=== PATIENT | male | born 1955 | race Asian ===

== ENCOUNTER 2017-05-07 20:28 | Inpatient (IN) | payer SELFPAY ==
[~2017-05-07] VITALS: Ht 175.3 cm; Wt 65.8 kg
[2017-05-07] MEDS ORDERED: Morphine Sulfate 4mg/ml Inj IVP ONE (20:30)
[2017-05-07] MEDS ORDERED: Famotidine 20 MG/ 2ML VIAL IVP ONE (20:45)
[2017-05-07 21:03] LABS: MEAN CORPUSCULAR HEMOGLOBIN 34.2 PG (27.0-31.0); MEAN CORPUSCULAR VOLUME 101 FL (80-99); MEAN PLATELET VOLUME 6.5 FL (6.5-10.1); PLATELET COUNT 204 K/UL (150-450); RED BLOOD COUNT 4.23 M/UL (4.70-6.10); RED CELL DISTRIBUTION WIDTH 11.6 % (11.6-14.8)
[2017-05-07 21:06] LABS: BASOPHILS % (AUTO) 0.8 % (0.0-2.0); EOSINOPHILS % (AUTO) 0.1 % (0.0-3.0); MONOCYTES % (AUTO) 3.4 % (1.0-10.0); NEUTROPHILS % (AUTO) 85.8 % (45.0-75.0)
[2017-05-07 21:12] LABS: TROPONIN I < 0.30 ng/mL (<=0.30)
[2017-05-07 21:13] LABS: ALANINE AMINOTRANSFERASE 21 U/L (3-41); ANION GAP 14 (5-15); ASPARTATE AMINO TRANSFERASE 22 U/L (5-40); CALCIUM 9.2 mg/dL (8.6-10.2); CARBON DIOXIDE 25 mEQ/L (20-30); CHLORIDE 102 mEQ/L (98-107); CREATININE 0.9 mg/dL (0.7-1.2); GLOMERULAR FILTRATION RATE > 60 mL/min (>60); HEMOLYSIS 7; POTASSIUM 3.5 mEQ/L (3.4-4.9); SODIUM 141 mEQ/L (135-145); TOTAL PROTEIN 6.7 g/dL (6.6-8.7)
[2017-05-07 21:16] LABS: INR 0.9 (0.9-1.1); PROTHROMBIN TIME 9.7 SEC (9.30-11.50)
[2017-05-07 21:51] LABS: LIPASE 2329 U/L (< 60)
--- NOTE | 2017-05-07 22:20 | Emergency Room Report ---
History of Present Illness General Chief Complaint: Abdominal Pain Source: Patient Present Illness HPI Patient is a 61-year-old male who presented after increased epigastric pain. Patient reported having alcohol yesterday. He had been having increased abdominal pain since the few hours prior to arrival.the patient vomited one time in emergency department. The pain was worsened by food. The patient reports having prior gastric surgery with likely partial gastrectomy. He denied any hematemesis or bloody stools Allergies: Coded Allergies: No Known Allergies (Unverified , 05/07/17) Patient History Past Medical History: see triage record Reviewed Nursing Documentation: PMH: Agreed, PSxH: Agreed Review of Systems All Other Systems: negative except mentioned in HPI Physical Exam Vital Signs Date Time Temp Pulse Resp B/P Pulse Ox O2 Delivery O2 Flow Rate FiO2 05/07/17 20:22 97.5 74 18 146/85 99 Room Air General Appearance: alert, GCS 15, moderate distress Neck: full range of motion, supple Respiratory: chest non-tender, lungs clear, normal breath sounds Cardiovascular #1: normal peripheral pulses Gastrointestinal: soft, tenderness - epigastric Musculoskeletal: normal inspection, back normal, digits/nails normal Neurologic: normal inspection, alert, oriented x3, responsive, 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 Differential diagnoses included ischemic bowel, appendicitis, perforated viscus, abdominal aortic aneurysm, inferior myocardial infarction, viral gastroenteritis Because of complexity of patient's case laboratory testing and imaging studies were ordered. The patient was given IV pain medication as well as antibiotics. He started on IV H2 makayla. The patient was noted to have elevated lipase on laboratory testing. Given the patient's advanced age and severe pain he is being admitted for IV hydration and as well as IV pain control.A CT abdomen pelvis read by radiology showed partial gastrectomy likely Siria-en-Y. 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 The head pancreas was edematous likely secondary to duodenal finding. The patient was discussed with Dr. Ocasio for surgical consult who recommended no ng tube. Dr. Hickman was contacted for inpatient management. Labs Test 05/07/17 20:44 White Blood Count 15.0 K/UL (4.8-10.8) Red Blood Count 4.23 M/UL (4.70-6.10) Hemoglobin 14.5 G/DL (14.2-18.0) Hematocrit 42.6 % (42.0-52.0) Mean Corpuscular Volume 101 FL (80-99) Mean Corpuscular Hemoglobin 34.2 PG (27.0-31.0) Mean Corpuscular Hemoglobin Concent 34.0 G/DL (32.0-36.0) Red Cell Distribution Width 11.6 % (11.6-14.8) Platelet Count 204 K/UL (150-450) Mean Platelet Volume 6.5 FL (6.5-10.1) Neutrophils (%) (Auto) 85.8 % (45.0-75.0) Lymphocytes (%) (Auto) 10.0 % (20.0-45.0) Monocytes (%) (Auto) 3.4 % (1.0-10.0) Eosinophils (%) (Auto) 0.1 % (0.0-3.0) Basophils (%) (Auto) 0.8 % (0.0-2.0) Prothrombin Time 9.7 SEC (9.30-11.50) Prothromb Time International Ratio 0.9 (0.9-1.1) Activated Partial Thromboplast Time 24 SEC (23-33) Sodium Level 141 mEQ/L (135-145) Potassium Level 3.5 mEQ/L (3.4-4.9) Chloride Level 102 mEQ/L (98-107) Carbon Dioxide Level 25 mEQ/L (20-30) Anion Gap 14 (5-15) Blood Urea Nitrogen 17 mg/dL (7-23) Creatinine 0.9 mg/dL (0.7-1.2) Estimat Glomerular Filtration Rate > 60 mL/min (>60) Glucose Level 147 mg/dL (74-106) Calcium Level 9.2 mg/dL (8.6-10.2) Total Bilirubin 0.6 mg/dL (0.0-1.2) Aspartate Amino Transf (AST/SGOT) 22 U/L (5-40) Alanine Aminotransferase (ALT/SGPT) 21 U/L (3-41) Alkaline Phosphatase 73 U/L (40-129) Troponin I < 0.30 ng/mL (<=0.30) Total Protein 6.7 g/dL (6.6-8.7) Albumin 4.5 g/dL (3.5-5.2) Globulin 2.2 g/dL Albumin/Globulin Ratio 2.0 (1.0-2.7) Lipase 2329 U/L (< 60) EKG Diagnostic Results Rate: normal Rhythm: NSR ST Segments: no acute changes Rhythm Strip Diag. Results EP Interpretation: yes Rhythm: NSR, no PVC's Last Vital Signs Date Time Temp Pulse Resp B/P Pulse Ox O2 Delivery O2 Flow Rate FiO2 05/07/17 20:22 97.5 74 18 146/85 99 Room Air Status: unchanged Disposition: ADMITTED INPATIENT Condition: Serious Referrals: NOT CHOSEN MAHNAZ/,REFERRING (PCP) Rico Dillard May 07, 2017 22:20
[2017-05-07 22:35] LABS: APPEARANCE,URINE CLEAR; KETONES,URINE NEGATIVE (NEGATIVE); LEUKOCYTE ESTERASE ,URINE NEGATIVE (NEGATIVE); NITRITE,URINE NEGATIVE (NEGATIVE); PH,URINE 7 (4.5-8.0); PROTEIN,URINE NEGATIVE (NEGATIVE); UROBILINOGEN,URINE NORMAL MG/DL (0.0-1.0)
[2017-05-07 23:03] VITALS: BP 121/70
[2017-05-07 23:45] VITALS: BP 138/90
[2017-05-08] MEDS ORDERED: Morphine Sulfate 4mg/ml Inj IVP PRN (00:30)
[2017-05-08] MEDS: 1/2NS w/KCl 20mEq 1000ml 1,000 ML IV SCH ×2 (01:03→15:51)
[2017-05-08 04:00] VITALS: BP 117/75
[2017-05-08 07:52] LABS: ALANINE AMINOTRANSFERASE 16 U/L (3-41); ANION GAP 9 (5-15); ASPARTATE AMINO TRANSFERASE 11 U/L (5-40); BASOPHILS % (AUTO) 0.6 % (0.0-2.0); CALCIUM 8.4 mg/dL (8.6-10.2); CARBON DIOXIDE 27 mEQ/L (20-30); CHLORIDE 106 mEQ/L (98-107); CREATININE 0.8 mg/dL (0.7-1.2); EOSINOPHILS % (AUTO) 0.2 % (0.0-3.0); GLOMERULAR FILTRATION RATE > 60 mL/min (>60); HEMOLYSIS 8; LYMPHOCYTES % (AUTO) 19.8 % (20.0-45.0); MEAN CORPUSCULAR HEMOGLOBIN 34.3 PG (27.0-31.0); MEAN CORPUSCULAR HGB CONC 33.5 G/DL (32.0-36.0); MEAN CORPUSCULAR VOLUME 102 FL (80-99); MEAN PLATELET VOLUME 6.8 FL (6.5-10.1); MONOCYTES % (AUTO) 6.4 % (1.0-10.0); PLATELET COUNT 179 K/UL (150-450); RED BLOOD COUNT 3.94 M/UL (4.70-6.10); RED CELL DISTRIBUTION WIDTH 11.7 % (11.6-14.8); SODIUM 142 mEQ/L (135-145); TOTAL PROTEIN 5.7 g/dL (6.6-8.7); WHITE BLOOD COUNT 7.7 K/UL (4.8-10.8)
[2017-05-08 08:00] VITALS: BP 121/74
[2017-05-08 08:52] LABS: LIPASE 748 U/L (< 60)
--- NOTE | 2017-05-08 09:51 | Diagnostic Imaging Report ---
Indication: Abdominal pain Technique: Continuous helical transaxial imaging of the abdomen and pelvis was obtained from the lung bases to the pubic symphysis during intravenous contrast administration. Coronal 2-D reformats were also obtained. Study obtained in a Siemens sensation [address] Total Dose length Product (DLP): [address] Dose Index Volume (CTDIvol): 16 mGy Comparison: None Findings: There is posterior basilar atelectasis noted. The patient has had prior partial gastrectomy. No oral contrast was given which is unfortunate. There is no free air. The stomach is not dilated. There is a dilated loop of small bowel crossing midline suspicious for obstruction. This could be the afferent limb of billroth 2 or britany-en-Y configuration. I'm not certain of this but given the location this is possibility. There does appear to be a transition in the left side of the abdomen between the left side of this dilated loop of bowel and normal caliber bowel (for example image 14-20, series 5) this apparent transition is fairly anterior in location may be an adhesion or internal hernia. In addition, the head of the pancreas is abnormal with edema and enlargement. Suspect focal pancreatitis. Please correlate clinically The gallbladder appears to be present although there are surgical clips in the area of the gallbladder fossa. Both kidneys enhance normally. There is no hydronephrosis. The spleen is unremarkable. Arterial vascular calcifications are present. There are diverticula in the colon without definite diverticulitis. Urinary bladder is mildly distended. The appendix is normal. Impression: Suspicion of bowel obstruction in the upper abdomen involving small bowel that crosses transversely just anterior to the aorta. This could represent afferent loop obstruction, as the patient has had partial gastrectomy with what may be a billroth 2 or more likely britany-en-y reconstruction. The other explanation for the dilated small bowel is dilatation on the basis of a focal ileus given that the adjacent pancreatic head shows evidence of acute pancreatitis. Please correlate clinically, but obstruction is more likely based on imaging. Strongly recommend repeating the exam with oral contrast, which unfortunately was not given for the current study. Hiatal hernia Arterial vascular disease Dilated urinary bladder Diverticulosis of the colon Normal appendix [facility] has communicated the preliminary results to the Emergency Department. Their findings are largely concordant with this report. The CT scanner at [facility] is accredited by the [employer] and the scans are performed using dose optimization techniques as appropriate to a performed exam including Automatic Exposure control.
--- NOTE | 2017-05-08 11:35 | General Progress Note ---
Progress Note Progress Note pt seen and examined, consult dictated. CT reviewed with radiologist. Imp sp partial gastrectomy. CT shows a single limb of disteded small bowell that may represent the afferent limb, adjacent to the pancreas. head of pancreas is inflamed and pt has very high lipase. rec GI consult \fu KUB message left for LEX Reyes May 08, 2017 11:35
[2017-05-08 12:00] VITALS: BP 115/68
--- NOTE | 2017-05-08 13:03 | Consultation ---
History of Present Illness General Chief Complaint: Abdominal Pain Present Illness HPI 61-year-old male who presented after increased epigastric pain. Patient reported having alcohol yesterday. Allergies: Coded Allergies: No Known Allergies (Unverified , 05/07/17) Patient History Healthcare decision maker Resuscitation status Advanced Directive on File Physical Exam Last 24 Hour Vital Signs Date Time Temp Pulse Resp B/P Pulse Ox O2 Delivery O2 Flow Rate FiO2 05/08/17 12:00 96.3 67 17 115/68 100 Room Air 05/08/17 08:00 97.2 61 17 121/74 97 Room Air 05/08/17 04:00 98.1 68 18 117/75 96 Room Air 05/07/17 23:45 97.0 82 18 138/90 95 Room Air 05/07/17 23:35 97.5 77 19 121/70 99 Room Air 05/07/17 23:03 97.5 77 19 121/70 99 Room Air 05/07/17 20:22 97.5 74 18 146/85 99 Room Air Intake and Output 05/07/17 05/08/17 19:00 07:00 Intake Total 1450 ml Output Total 525 ml Balance 925 ml Intake IV Total 1450 ml Output Urine Total 525 ml # Voids 1 Laboratory Tests Test 05/07/17 20:44 05/07/17 22:04 05/08/17 05:40 05/08/17 10:20 White Blood Count 15.0 K/UL (4.8-10.8) H 7.7 K/UL (4.8-10.8) Red Blood Count 4.23 M/UL (4.70-6.10) L 3.94 M/UL (4.70-6.10) L Hemoglobin 14.5 G/DL (14.2-18.0) 13.5 G/DL (14.2-18.0) L Hematocrit 42.6 % (42.0-52.0) 40.3 % (42.0-52.0) L Mean Corpuscular Volume 101 FL (80-99) H 102 FL (80-99) H Mean Corpuscular Hemoglobin 34.2 PG (27.0-31.0) H 34.3 PG (27.0-31.0) H Mean Corpuscular Hemoglobin Concent 34.0 G/DL (32.0-36.0) 33.5 G/DL (32.0-36.0) Red Cell Distribution Width 11.6 % (11.6-14.8) 11.7 % (11.6-14.8) Platelet Count 204 K/UL (150-450) 179 K/UL (150-450) Mean Platelet Volume 6.5 FL (6.5-10.1) 6.8 FL (6.5-10.1) Neutrophils (%) (Auto) 85.8 % (45.0-75.0) H 73.0 % (45.0-75.0) Lymphocytes (%) (Auto) 10.0 % (20.0-45.0) L 19.8 % (20.0-45.0) L Monocytes (%) (Auto) 3.4 % (1.0-10.0) 6.4 % (1.0-10.0) Eosinophils (%) (Auto) 0.1 % (0.0-3.0) 0.2 % (0.0-3.0) Basophils (%) (Auto) 0.8 % (0.0-2.0) 0.6 % (0.0-2.0) Prothrombin Time 9.7 SEC (9.30-11.50) Prothromb Time International Ratio 0.9 (0.9-1.1) Activated Partial Thromboplast Time 24 SEC (23-33) Sodium Level 141 mEQ/L (135-145) 142 mEQ/L (135-145) Potassium Level 3.5 mEQ/L (3.4-4.9) 4.0 mEQ/L (3.4-4.9) Chloride Level 102 mEQ/L (98-107) 106 mEQ/L (98-107) Carbon Dioxide Level 25 mEQ/L (20-30) 27 mEQ/L (20-30) Anion Gap 14 (5-15) 9 (5-15) Blood Urea Nitrogen 17 mg/dL (7-23) 15 mg/dL (7-23) Creatinine 0.9 mg/dL (0.7-1.2) 0.8 mg/dL (0.7-1.2) Estimat Glomerular Filtration Rate > 60 mL/min (>60) > 60 mL/min (>60) Glucose Level 147 mg/dL (74-106) H 107 mg/dL (74-106) H Calcium Level 9.2 mg/dL (8.6-10.2) 8.4 mg/dL (8.6-10.2) L Total Bilirubin 0.6 mg/dL (0.0-1.2) 0.8 mg/dL (0.0-1.2) Aspartate Amino Transf (AST/SGOT) 22 U/L (5-40) 11 U/L (5-40) Alanine Aminotransferase (ALT/SGPT) 21 U/L (3-41) 16 U/L (3-41) Alkaline Phosphatase 73 U/L (40-129) 63 U/L (40-129) Troponin I < 0.30 ng/mL (<=0.30) Total Protein 6.7 g/dL (6.6-8.7) 5.7 g/dL (6.6-8.7) L Albumin 4.5 g/dL (3.5-5.2) 3.8 g/dL (3.5-5.2) Globulin 2.2 g/dL 1.9 g/dL Albumin/Globulin Ratio 2.0 (1.0-2.7) 2.0 (1.0-2.7) Lipase 2329 U/L (< 60) H 748 U/L (< 60) H Urine Color Pale yellow Urine Appearance Clear Urine pH 7 (4.5-8.0) Urine Specific [place] 1.010 (1.005-1.035) Urine Protein Negative (NEGATIVE) Urine Glucose (UA) Negative (NEGATIVE) Urine Ketones Negative (NEGATIVE) Urine Occult Blood Negative (NEGATIVE) Urine Nitrite Negative (NEGATIVE) Urine Bilirubin Negative (NEGATIVE) Urine Urobilinogen Normal MG/DL (0.0-1.0) Urine Leukocyte Esterase Negative (NEGATIVE) Urine Opiates Screen Positive (NEGATIVE) H Urine Barbiturates Screen Negative (NEGATIVE) Phencyclidine (PCP) Screen Negative (NEGATIVE) Urine Amphetamines Screen Negative (NEGATIVE) Urine Benzodiazepines Screen Negative (NEGATIVE) Urine Cocaine Screen Negative (NEGATIVE) Urine Marijuana (THC) Screen Negative (NEGATIVE) Height (Feet): 5 Height (Inches): 9.00 Weight (Pounds): 145 Medications Current Medications Medications (Trade) Dose Ordered Sig/Martha Route PRN Reason Start Time Stop Time Status Last Admin Dose Admin Morphine Sulfate (Morphine Sulfate) 4 mg Q4H PRN IVP For Pain 05/08/17 00:30 05/15/17 00:29 Ondansetron HCl (Zofran) 4 mg Q6H PRN IVP Nausea & Vomiting 05/08/17 00:30 06/07/17 00:29 Sodium (0.45%NS w/KCl 20mEq 1000ml) 1,000 ml @ 75 mls/hr [id number] IV 05/08/17 00:30 06/07/17 00:29 05/08/17 01:03 Brian Cam M.D. May 08, 2017 13:03
--- NOTE | 2017-05-08 13:46 | Consultation ---
DATE OF CONSULTATION: 05/08/2017 SURGICAL CONSULTATION CONSULTING PHYSICIAN: Freddie Porter M.D. REASON FOR CONSULT: Abdominal pain. PRESENT HISTORY: This 61-year-old, gentleman admitted to [facility] after being seen in the emergency department yesterday with increasing abdominal pain. The patient had one episode of vomiting. No hematemesis, had some had some alcohol yesterday with the patient significantly is status post a gastric resection done some 15 years ago at [facility]. He is uncertain the extent of the surgery or what type was done, but this had been done laparoscopically. The patient had a CT scan of the abdomen performed, which was reviewed with the radiologist, unfortunately no oral contrast had been given. There is a single loop of distended small bowel hugging at the border of the inferior to the pancreas that may represent an apparent limb that is markedly dilated. The pancreas is noted to be edematous and enlarged suspicious for focal pancreatitis. Gallbladder appears to be present although there are surgical clips in the area. The patient denies any other major medical problems. MEDICATIONS: Include morphine sulfate, Zofran and Pepcid. REVIEW OF SYSTEMS: Noncontributory. PHYSICAL EXAMINATION: VITAL SIGNS: Vital signs show a temperature 97.2 degrees, pulse is 61, respirations 17, blood pressure is 121/74, and 97% O2 saturation on room air. HEENT: Normocephalic. The sclerae not icteric. The pupils are round and reactive to light. His throat is clear. No exudates or pharyngitis. NECK: Supple. No JVD or thyromegaly noted. LUNGS: Lungs are clear bilaterally. HEART: Normal sinus rhythm. ABDOMEN: Soft. There is a well-healed transverse scar in the left upper quadrant. Another scars consistent with trocar site. There is no distention. No guarding. No rebound. GENITALIA: Normal male. EXTREMITIES: No clubbing, cyanosis, or edema. LABORATORY AND DIAGNOSTIC DATA: Labs show a white blood count of 7.7, hemoglobin of 13.5, hematocrit 40.3, and platelet count is 179,000. Chemistry sodium 142, potassium 4.0, chloride 106, bicarbonate 27, BUN is 15, creatinine 0.8, glucose is 107 and calcium is 8.4. Total bilirubin is 0.8, AST is 11, ALT is 16 and alkaline phosphatase is 63. Lipase is markedly elevated with initial of 2329 and now repeat is 749. has been done. IMPRESSION: 1. Nausea, vomiting and abdominal pain. 2. Status post gastric surgery, it is uncertain whether the patient had a Siria-en-Y repair versus loop of distended small bowel may represent partial obstruction of the apparent limb this may be caused by the pancreatitis involving the head of the pancreas. RECOMMENDATIONS: 1. Keep NPO. 2. Follow up KUB. 3. Gastrointestinal evaluation is possible though may be very difficult to perform an endoscopy to evaluate the apparent limb. Thank you, Dr. Richard, for inviting us to participate in the management. Freddie Porter M.D. DR: Simran JOB#: [id number] CC:
--- NOTE | 2017-05-08 13:50 | Consultation ---
Consult Note Consult Note asked to eval for renal consult Patient is a 61-year-old male who presented after increased epigastric pain. Patient reported having alcohol yesterday. He had been having increased abdominal pain since the few hours prior to arrival.the patient vomited one time in emergency department. The pain was worsened by food. The patient reports having prior gastric surgery with likely partial gastrectomy. He denied any hematemesis or bloody stools Interviewed and examined- data reviewed Assessment/Plan No renal issues Normal renal parameters and negative UA - Nausea, vomiting and abdominal pain. with high Lipase - Status post gastric surgery, it is uncertain whether the patient had a Siria-en-Y repair versus loop of distended small bowel may represent partial obstruction of the apparent limb this may be caused by the pancreatitis involving the head of the pancreas. Per GI and Surg DEVIN CORONADO May 08, 2017 13:50
--- NOTE | 2017-05-08 14:12 | Infectious Diseases Prog Note ---
Assessment/Plan Problems: (1) Left leg cellulitis Assessment & Plan: will start cefazoline , and send blood culture (2) Leukocytosis Assessment & Plan: suspect due to cellulitis, rule out sepsis, will send blood culture , and start cefazoline (3) Pancreatitis, alcoholic, acute Assessment & Plan: continue hydration and pain management , consult GI (4) Abdominal pain Assessment & Plan: due to the above, continue pain management (5) Ileus Assessment & Plan: due to pancreatitis , keep npo, continue hydration Subjective Allergies: Coded Allergies: No Known Allergies (Unverified , 05/07/17) Objective Vital Signs Last 24 Hour Vital Signs Date Time Temp Pulse Resp B/P Pulse Ox O2 Delivery O2 Flow Rate FiO2 05/08/17 12:00 96.3 67 17 115/68 100 Room Air 05/08/17 08:00 97.2 61 17 121/74 97 Room Air 05/08/17 04:00 98.1 68 18 117/75 96 Room Air 05/07/17 23:45 97.0 82 18 138/90 95 Room Air 05/07/17 23:35 97.5 77 19 121/70 99 Room Air 05/07/17 23:03 97.5 77 19 121/70 99 Room Air 05/07/17 20:22 97.5 74 18 146/85 99 Room Air Height (Feet): 5 Height (Inches): 9.00 Weight (Pounds): 145 Laboratory Tests Test 05/07/17 20:44 05/07/17 22:04 05/08/17 05:40 05/08/17 10:20 White Blood Count 15.0 K/UL (4.8-10.8) H 7.7 K/UL (4.8-10.8) Red Blood Count 4.23 M/UL (4.70-6.10) L 3.94 M/UL (4.70-6.10) L Hemoglobin 14.5 G/DL (14.2-18.0) 13.5 G/DL (14.2-18.0) L Hematocrit 42.6 % (42.0-52.0) 40.3 % (42.0-52.0) L Mean Corpuscular Volume 101 FL (80-99) H 102 FL (80-99) H Mean Corpuscular Hemoglobin 34.2 PG (27.0-31.0) H 34.3 PG (27.0-31.0) H Mean Corpuscular Hemoglobin Concent 34.0 G/DL (32.0-36.0) 33.5 G/DL (32.0-36.0) Red Cell Distribution Width 11.6 % (11.6-14.8) 11.7 % (11.6-14.8) Platelet Count 204 K/UL (150-450) 179 K/UL (150-450) Mean Platelet Volume 6.5 FL (6.5-10.1) 6.8 FL (6.5-10.1) Neutrophils (%) (Auto) 85.8 % (45.0-75.0) H 73.0 % (45.0-75.0) Lymphocytes (%) (Auto) 10.0 % (20.0-45.0) L 19.8 % (20.0-45.0) L Monocytes (%) (Auto) 3.4 % (1.0-10.0) 6.4 % (1.0-10.0) Eosinophils (%) (Auto) 0.1 % (0.0-3.0) 0.2 % (0.0-3.0) Basophils (%) (Auto) 0.8 % (0.0-2.0) 0.6 % (0.0-2.0) Prothrombin Time 9.7 SEC (9.30-11.50) Prothromb Time International Ratio 0.9 (0.9-1.1) Activated Partial Thromboplast Time 24 SEC (23-33) Sodium Level 141 mEQ/L (135-145) 142 mEQ/L (135-145) Potassium Level 3.5 mEQ/L (3.4-4.9) 4.0 mEQ/L (3.4-4.9) Chloride Level 102 mEQ/L (98-107) 106 mEQ/L (98-107) Carbon Dioxide Level 25 mEQ/L (20-30) 27 mEQ/L (20-30) Anion Gap 14 (5-15) 9 (5-15) Blood Urea Nitrogen 17 mg/dL (7-23) 15 mg/dL (7-23) Creatinine 0.9 mg/dL (0.7-1.2) 0.8 mg/dL (0.7-1.2) Estimat Glomerular Filtration Rate > 60 mL/min (>60) > 60 mL/min (>60) Glucose Level 147 mg/dL (74-106) H 107 mg/dL (74-106) H Calcium Level 9.2 mg/dL (8.6-10.2) 8.4 mg/dL (8.6-10.2) L Total Bilirubin 0.6 mg/dL (0.0-1.2) 0.8 mg/dL (0.0-1.2) Aspartate Amino Transf (AST/SGOT) 22 U/L (5-40) 11 U/L (5-40) Alanine Aminotransferase (ALT/SGPT) 21 U/L (3-41) 16 U/L (3-41) Alkaline Phosphatase 73 U/L (40-129) 63 U/L (40-129) Troponin I < 0.30 ng/mL (<=0.30) Total Protein 6.7 g/dL (6.6-8.7) 5.7 g/dL (6.6-8.7) L Albumin 4.5 g/dL (3.5-5.2) 3.8 g/dL (3.5-5.2) Globulin 2.2 g/dL 1.9 g/dL Albumin/Globulin Ratio 2.0 (1.0-2.7) 2.0 (1.0-2.7) Lipase 2329 U/L (< 60) H 748 U/L (< 60) H Urine Color Pale yellow Urine Appearance Clear Urine pH 7 (4.5-8.0) Urine Specific [place] 1.010 (1.005-1.035) Urine Protein Negative (NEGATIVE) Urine Glucose (UA) Negative (NEGATIVE) Urine Ketones Negative (NEGATIVE) Urine Occult Blood Negative (NEGATIVE) Urine Nitrite Negative (NEGATIVE) Urine Bilirubin Negative (NEGATIVE) Urine Urobilinogen Normal MG/DL (0.0-1.0) Urine Leukocyte Esterase Negative (NEGATIVE) Urine Opiates Screen Positive (NEGATIVE) H Urine Barbiturates Screen Negative (NEGATIVE) Phencyclidine (PCP) Screen Negative (NEGATIVE) Urine Amphetamines Screen Negative (NEGATIVE) Urine Benzodiazepines Screen Negative (NEGATIVE) Urine Cocaine Screen Negative (NEGATIVE) Urine Marijuana (THC) Screen Negative (NEGATIVE) Current Medications Medications (Trade) Dose Ordered Sig/Martha Route PRN Reason Start Time Stop Time Status Last Admin Dose Admin Morphine Sulfate (Morphine Sulfate) 4 mg Q4H PRN IVP For Pain 05/08/17 00:30 7 00:29 Ondansetron HCl (Zofran) 4 mg Q6H PRN IVP Nausea & Vomiting 05/08/17 00:30 8 00:29 Sodium (0.45%NS w/KCl 20mEq 1000ml) 1,000 ml @ 75 mls/hr [id number] IV 05/08/17 00:30 8 00:29 05/08/17 01:03 Reid Rojas M.D. May 08, 2017 14:12
--- NOTE | 2017-05-08 14:45 | Consultation ---
DATE OF CONSULTATION: 05/08/2017 REQUESTING PHYSICIAN: Marie Richard M.D. REASON FOR CONSULTATION: Abdominal pain. HISTORY OF PRESENT ILLNESS: This is a 61-year-old [place] male, who presented to emergency room, complaining of one-day history of abdominal pain when apparently the pain was lower abdomen and periumbilical and crampy, this pain was associated with nausea or vomiting. He claimed that the pain has resolved, has been improved considerably now. At the present time, he only complains of discomfort. He had a normal bowel movement yesterday. He has a history of partial gastrectomy about 20 years ago and apparently, he has a history of ETOH abuse. The patient is not very interested in giving any information. Difficult to get any answer. PAST MEDICAL HISTORY: He denies allergies, asthma, diabetes, hypertension, cardiac and renal diseases. PAST SURGICAL HISTORY: Laparostomy, gastrectomy, apparently for gastritis and apparently for peptic ulcer disease. MEDICATIONS: None. SOCIAL HISTORY: The patient is a 61-year-old [place] male, who is and father of six children. He is a cook. He smokes a pack of cigarettes a day and drinks every day. He claimed that he drinks beer and whisky. REVIEW OF SYSTEMS: Noncontributory. PHYSICAL EXAMINATION: GENERAL: The patient appeared to be a well-developed and well-nourished, 61-year-old [place] male, mildly ischemic. HEENT: Head is normocephalic and atraumatic. Eyes, pupils are equal, round, and reactive to light. Mouth is clear. NECK: There is no palpable thyromegaly or adenopathy. CHEST: Clear to auscultation and percussion. HEART: There is no gallop or murmur. S1 and S2 are within normal limits. ABDOMEN: Soft and flat. He claims only slight discomfort in the lower abdomen. He has a scar of the few laparoscopy trocar site incisions. Bowel sounds are hypoactive. There is no palpable organomegaly. GENITAL: Normal. EXTREMITIES: Within normal limits. LABORATORY DATA: CBC on admission has shown a WBC of 15,000 with left shift, but this morning it is 7700 with normal differential. Chemistry on admission has shown lipase of 2329, but this morning, it has been 748. CAT scan of the abdomen has been reported as the head of the pancreas to be dilated and inflamed besides there is a dilated loop of small bowel, which seems to be the proximal part of the bowel. The radiologist was not sure if this efferent loop of the bowel or is due to the obstruction. ASSESSMENT: Abdominal pain, rule out small bowel obstruction. RECOMMENDATION: At this time, the patient is to be NPO, on intravenous fluids. I took the liberty of ordering a Gastrografin small bowel follow-through to make sure about the small bowel. Thank you, Dr. Richard, for asking me to participate in the management of this patient. Janusz Albright M.D. DR: KIARA JOB#: [id number] CC: ADRIANNA
--- NOTE | 2017-05-08 14:55 | GI Initial Consult Note ---
History of Present Illness General Date patient seen: May 08, 2017 Time patient seen: 10:00 Reason for Hospitalization: Abdominal Pain Referring physician: VAISHALI MORENO Reason for Consultation: PANCREATITIS Present Illness HPI Patient is a 61-year-old male who presented after increased epigastric pain. Patient reported having alcohol yesterday. He had been having increased abdominal pain since the few hours prior to arrival.the patient vomited one time in emergency department. The pain was worsened by food. The patient reports having prior gastric surgery with likely partial gastrectomy. He denied any hematemesis or bloody stools GI Consult. HPI as noted above. GI consulted for ETOH pancreatitis. Pt seen on floor, awake A&Ox4 NAD with no active s/sx of N/V/D c/o of abdominal pain tender to touch. Presents with lipase over 2000 in ER now downtrending to 750. APCT shows possible SB obstruction vs focal ileus and pancreatitis, see full report below. Procedure: CT Abdomen Pelvis w/Contrast Indication: Abdominal pain Impression: Suspicion of bowel obstruction in the upper abdomen involving small bowel that crosses transversely just anterior to the aorta. This could represent afferent loop obstruction, as the patient has had partial gastrectomy with what may be a billroth 2 or more likely britany-en-y reconstruction. The other explanation for the dilated small bowel is dilatation on the basis of a focal ileus given that the adjacent pancreatic head shows evidence of acute pancreatitis. Please correlate clinically, but obstruction is more likely based on imaging. Strongly recommend repeating the exam with oral contrast, which unfortunately was not given for the current study. Hiatal hernia Arterial vascular disease Dilated urinary bladder Diverticulosis of the colon Normal appendix Med list reviewed/reconciled: Yes Allergies: Coded Allergies: No Known Allergies (Unverified , 05/07/17) Patient History History Provided By: Patient, Medical Record PMH Narrative Allergies: Coded Allergies: No Known Allergies (Unverified , 05/07/17) Patient History Past Medical History: see triage record Reviewed Nursing Documentation: PMH: Agreed, PSxH: Agreed Social History: Reports: alcohol use Review of Systems All Other Systems: negative except mentioned in HPI Physical Exam Vital Signs Date Time Temp Pulse Resp B/P Pulse Ox O2 Delivery O2 Flow Rate FiO2 05/07/17 20:22 97.5 74 18 146/85 99 Room Air Sp02 EP Interpretation: reviewed Labs Laboratory Tests Test 05/07/17 20:44 7/4/17 22:04 05/08/17 05:40 05/08/17 10:20 White Blood Count 15.0 K/UL (4.8-10.8) H 7.7 K/UL (4.8-10.8) Red Blood Count 4.23 M/UL (4.70-6.10) L 3.94 M/UL (4.70-6.10) L Hemoglobin 14.5 G/DL (14.2-18.0) 13.5 G/DL (14.2-18.0) L Hematocrit 42.6 % (42.0-52.0) 40.3 % (42.0-52.0) L Mean Corpuscular Volume 101 FL (80-99) H 102 FL (80-99) H Mean Corpuscular Hemoglobin 34.2 PG (27.0-31.0) H 34.3 PG (27.0-31.0) H Mean Corpuscular Hemoglobin Concent 34.0 G/DL (32.0-36.0) 33.5 G/DL (32.0-36.0) Red Cell Distribution Width 11.6 % (11.6-14.8) 11.7 % (11.6-14.8) Platelet Count 204 K/UL (150-450) 179 K/UL (150-450) Mean Platelet Volume 6.5 FL (6.5-10.1) 6.8 FL (6.5-10.1) Neutrophils (%) (Auto) 85.8 % (45.0-75.0) H 73.0 % (45.0-75.0) Lymphocytes (%) (Auto) 10.0 % (20.0-45.0) L 19.8 % (20.0-45.0) L Monocytes (%) (Auto) 3.4 % (1.0-10.0) 6.4 % (1.0-10.0) Eosinophils (%) (Auto) 0.1 % (0.0-3.0) 0.2 % (0.0-3.0) Basophils (%) (Auto) 0.8 % (0.0-2.0) 0.6 % (0.0-2.0) Prothrombin Time 9.7 SEC (9.30-11.50) Prothromb Time International Ratio 0.9 (0.9-1.1) Activated Partial Thromboplast Time 24 SEC (23-33) Sodium Level 141 mEQ/L (135-145) 142 mEQ/L (135-145) Potassium Level 3.5 mEQ/L (3.4-4.9) 4.0 mEQ/L (3.4-4.9) Chloride Level 102 mEQ/L (98-107) 106 mEQ/L (98-107) Carbon Dioxide Level 25 mEQ/L (20-30) 27 mEQ/L (20-30) Anion Gap 14 (5-15) 9 (5-15) Blood Urea Nitrogen 17 mg/dL (7-23) 15 mg/dL (7-23) Creatinine 0.9 mg/dL (0.7-1.2) 0.8 mg/dL (0.7-1.2) Estimat Glomerular Filtration Rate > 60 mL/min (>60) > 60 mL/min (>60) Glucose Level 147 mg/dL (74-106) H 107 mg/dL (74-106) H Calcium Level 9.2 mg/dL (8.6-10.2) 8.4 mg/dL (8.6-10.2) L Total Bilirubin 0.6 mg/dL (0.0-1.2) 0.8 mg/dL (0.0-1.2) Aspartate Amino Transf (AST/SGOT) 22 U/L (5-40) 11 U/L (5-40) Alanine Aminotransferase (ALT/SGPT) 21 U/L (3-41) 16 U/L (3-41) Alkaline Phosphatase 73 U/L (40-129) 63 U/L (40-129) Troponin I < 0.30 ng/mL (<=0.30) Total Protein 6.7 g/dL (6.6-8.7) 5.7 g/dL (6.6-8.7) L Albumin 4.5 g/dL (3.5-5.2) 3.8 g/dL (3.5-5.2) Globulin 2.2 g/dL 1.9 g/dL Albumin/Globulin Ratio 2.0 (1.0-2.7) 2.0 (1.0-2.7) Lipase 2329 U/L (< 60) H 748 U/L (< 60) H Urine Color Pale yellow Urine Appearance Clear Urine pH 7 (4.5-8.0) Urine Specific [place] 1.010 (1.005-1.035) Urine Protein Negative (NEGATIVE) Urine Glucose (UA) Negative (NEGATIVE) Urine Ketones Negative (NEGATIVE) Urine Occult Blood Negative (NEGATIVE) Urine Nitrite Negative (NEGATIVE) Urine Bilirubin Negative (NEGATIVE) Urine Urobilinogen Normal MG/DL (0.0-1.0) Urine Leukocyte Esterase Negative (NEGATIVE) Urine Opiates Screen Positive (NEGATIVE) H Urine Barbiturates Screen Negative (NEGATIVE) Phencyclidine (PCP) Screen Negative (NEGATIVE) Urine Amphetamines Screen Negative (NEGATIVE) Urine Benzodiazepines Screen Negative (NEGATIVE) Urine Cocaine Screen Negative (NEGATIVE) Urine Marijuana (THC) Screen Negative (NEGATIVE) General Appearance: well appearing, no apparent distress, alert, thin Head: normocephalic EENT: PERRL/EOMI, normal ENT inspection Neck: supple Respiratory: normal breath sounds, no respiratory distress Cardiovascular: normal rate Gastrointestinal: normal inspection, non tender, soft, normal bowel sounds Rectal: deferred Neurologic: normal inspection, alert, oriented x3, responsive Psychiatric: normal inspection, judgement/insight normal, memory normal Skin: normal inspection, normal color, no rash, warm/dry, palpation normal, well hydrated Lymphatic: normal inspection, no adenopathy Current Medications Current Medications Medications (Trade) Dose Ordered Sig/Martha Route PRN Reason Start Time Stop Time Status Last Admin Dose Admin Morphine Sulfate (Morphine Sulfate) 4 mg Q4H PRN IVP For Pain 05/08/17 00:30 05/15/17 00:29 Ondansetron HCl (Zofran) 4 mg Q6H PRN IVP Nausea & Vomiting 05/08/17 00:30 06/07/17 00:29 Sodium (0.45%NS w/KCl 20mEq 1000ml) 1,000 ml @ 75 mls/hr [id number] IV 05/08/17 00:30 8 00:29 05/08/17 01:03 GI: Plan Problems: (1) Pancreatitis, alcoholic, acute (2) Abdominal pain (3) Duodenal obstruction (4) Leukocytosis (5) S/P partial gastrectomy (6) Ileus Plan APCT reviewed >> suspicion of bowel obstruction in the upper abdomen vs focal ileus given that the adjacent pancreatic head shows evidence of acute pancreatitis, see full report. - most likely focal ileus given ETOH pancreatitis. NPO + IV hydration + electrolyte replacement pain mgmt ppi IV monitor lipase levels fu labs surgery consulted for possible bowel obstruction. Discussed with Dr. King. Thank you for referring this patient, we will follow. Marta Wiley N.P. May 08, 2017 14:55
[2017-05-08 16:00] VITALS: BP 120/74
--- NOTE | 2017-05-08 16:48 | Cardiology Report ---
APPROVED REPORT EKG Measurement Heart [id number] FL [id number] Normal sinus rhythm Normal ECG
--- NOTE | 2017-05-08 17:01 | Consultation ---
DATE OF CONSULTATION: INFECTIOUS DISEASE CONSULTATION CONSULTING PHYSICIAN: Reid Rojas M.D. REQUESTING PHYSICIAN: Marie Richard M.D. REASON FOR CONSULTATION: Left lower extremity cellulitis with wound and leukocytosis. Recommendation for antibiotics treatment HISTORY OF PRESENT ILLNESS: The patient is a 61-year-old male with no significant past medical history, who drinks alcohol almost on daily basis, presented to [facility] emergency room with sudden onset of epigastric pain. He describes it as dull deep ache, radiates to his back, and 10/10 in intensity. It gets worse with eating or movement and gets better with pain medicine. He had nausea, but did not vomit. The patient had left leg wounds. He does not remember how he developed this wound with redness and erythema, round and dry scab in the middle. The patient's lipase level was found to be elevated, suspicious for pancreatitis. CT scan of the abdomen showed ileus and pancreatitis in the remaining head of the pancreas. So, he was admitted to the hospital and I was consulted by the primary provider for antibiotics treatment and further management. PAST MEDICAL HISTORY: Negative. PAST SURGICAL HISTORY: The patient had a Siria-en-Y surgery in the past. MEDICATIONS: He is on Zofran, morphine, and sodium. ALLERGIES: He has no known drug allergy. SOCIAL HISTORY: The patient lives by himself. He drinks alcohol almost on daily basis. Denied using any drugs or tobacco. FAMILY HISTORY: Noncontributory. REVIEW OF SYSTEMS: A 14-point of systems reviewed were all negative apart from the one I mentioned above in my History and Physical. PHYSICAL EXAMINATION: VITAL SIGNS: Temperature 96.3 degrees, pulse 67, respirations 17, blood pressure 115/68, and saturation 100% on room air. GENERAL: A middle-aged male, lying in bed, comfortable, awake, alert, and not in distress. HEENT: Normocephalic and atraumatic. Pupils reactive to light. Pale sclera. Dry oral mucosa. No exudate or thrush. NECK: Supple. No lymphadenopathy. CARDIOVASCULAR: Regular rate and rhythm. No murmur. LUNGS: Clear bilaterally. No wheezing or rhonchi. ABDOMEN: Soft. Tender in the epigastric area. No rebound. No organomegaly. No ascites. EXTREMITIES: He had left lower extremity wound with dry scab and cellulitis surrounding his wound. SKIN: No rash or hives, but redness, erythema, and wound on the left lower extremity. LABORATORY DATA: His white count is 15,000, hemoglobin 14.5, and platelet count of 204,000. BUN of 15 and creatinine of 0.8. AST of 11 and ALT of 16. Lipase of 748. Urinalysis negative for infection. IMAGING: Abdominal CT scan showed a bowel obstruction in the upper abdomen involving the small bowel with evidence of acute pancreatitis in the remaining head of the pancreas. ASSESSMENT AND PLAN: 1. Left leg cellulitis. We will start the patient on cefazolin empiric treatment and send blood culture. 2. Leukocytosis, suspect due to cellulitis, rule out sepsis. We will send blood culture and start cefazolin. 3. Pancreatitis, alcoholic related, acute. Continue hydration and pain management. Consult Gastrointestinal. 4. Abdominal pain due to the above. Continue pain management as per Primary. 5. Ileus due to pancreatitis. Keep NPO. Continue hydration and supportive care. General surgery is following. Reid Rojas M.D. DR: REYNALDO JOB#: [id number] CC:
[2017-05-08] MEDS: ceFAZolin sod 1 GM in D5W 55 ML IVPB SCH ×2 (17:30→22:57)
[2017-05-08 20:00] VITALS: BP 169/97
[2017-05-08 20:24] VITALS: BP 127/79
[2017-05-09 00:08] VITALS: BP 130/70
--- NOTE | 2017-05-09 03:15 | History and Physical Report ---
DATE OF ADMISSION: 05/07/2017 NOTE: "POOR AUDIO QUALITY" REASON FOR ADMISSION: Abdominal pain. HISTORY OF PRESENT ILLNESS: The patient is admitted for abdominal pain due to pancreatitis. The patient continued to have severe abdominal pain and vomiting for the past one day. The patient small bowel the patient had abdominal surgery of unknown etiology. The patient denies any fever or chills. Denies rectal bleed. Denies orthopnea. Denies shortness of breath. Denies cough. PAST MEDICAL HISTORY: History of abdominal and history of history of ileus. PAST SURGICAL HISTORY: Abdominal surgery of unknown etiology. MEDICATIONS: None. ALLERGIES: No known allergies. FAMILY HISTORY: Noncontributory. SOCIAL HISTORY: The patient smokes, has history of alcohol abuse. No history of drug abuse. REVIEW OF SYSTEMS: HEENT: Denies headaches. Respiratory: Denies shortness of breath. Denies cough. Cardiovascular: Denies chest pain or orthopnea. Gastrointestinal: The patient has abdominal pain severe for one day. . He does have occasional heart burn. No diarrhea. Extremities: Denies pain. Moves all four extremities. Central Nervous System: Denies change in vision or speech pattern. PHYSICAL EXAMINATION: VITAL SIGNS: Temperature 97 degrees, pulse 83, blood pressure 138/90. HEENT: PERRLA. NECK: Supple. No lymphadenopathy. CHEST: Clear to auscultation. . GASTROINTESTINAL: Epigastric tenderness. No rebound. No organomegaly. Positive bowel sounds. EXTREMITIES: No edema. NEUROLOGIC: Reflexes are equal on both sides. Moves all four extremities. LABORATORY DATA: WBC of 15, hemoglobin 14.5, and platelets 204,000. Sodium 141, potassium 3.5, BUN of 17, creatinine , and glucose of 137. . ASSESSMENT AND PLAN: Pancreatitis, abnormality on the CAT scan that could be due to pancreas. consulted Dr. King, Dr. Kern, Dr. Rojas, Dr. Tutu Dr. to see the patient for the above-mentioned diagnoses and treatment. The patient is currently kept NPO, started on IV fluids, and antibiotics by the Infectious Diseases. Marie Richard M.D. DR: KATHI JOB#: [id number] CC:
[2017-05-09 04:16] VITALS: BP 132/75
[2017-05-09] MEDS: 1/2NS w/KCl 20mEq 1000ml 1,000 ML IV SCH ×2 (04:38→17:20)
[2017-05-09] MEDS: ceFAZolin sod 1 GM in D5W 55 ML IVPB SCH ×3 (06:44→22:34)
[2017-05-09 07:08] LABS: BASOPHILS % (AUTO) 0.6 % (0.0-2.0); EOSINOPHILS % (AUTO) 0.5 % (0.0-3.0); LYMPHOCYTES % (AUTO) 16.6 % (20.0-45.0); MEAN CORPUSCULAR HEMOGLOBIN 33.9 PG (27.0-31.0); MEAN CORPUSCULAR VOLUME 103 FL (80-99); MEAN PLATELET VOLUME 6.6 FL (6.5-10.1); MONOCYTES % (AUTO) 5.2 % (1.0-10.0); NEUTROPHILS % (AUTO) 77.1 % (45.0-75.0); PLATELET COUNT 165 K/UL (150-450); RED BLOOD COUNT 4.11 M/UL (4.70-6.10); RED CELL DISTRIBUTION WIDTH 11.6 % (11.6-14.8); WHITE BLOOD COUNT 7.1 K/UL (4.8-10.8)
[2017-05-09 07:29] LABS: ANION GAP 13 (5-15); CALCIUM 8.6 mg/dL (8.6-10.2); CARBON DIOXIDE 22 mEQ/L (20-30); CHLORIDE 104 mEQ/L (98-107); CREATININE 0.8 mg/dL (0.7-1.2); GLOMERULAR FILTRATION RATE > 60 mL/min (>60); HEMOLYSIS 10; LIPASE 43 U/L (< 60); POTASSIUM 4.1 mEQ/L (3.4-4.9); SODIUM 139 mEQ/L (135-145)
[2017-05-09 08:04] VITALS: BP 108/78
[2017-05-09] MEDS: Thiamine 100mg tab ORAL SCH (08:31)
--- NOTE | 2017-05-09 11:33 | Diagnostic Imaging Report ---
Indication: A abdominal pain. Followup. Comparison: CT one day earlier Single view of the abdomen obtained Findings: The dilated, fluid-filled loop of small bowel in the epigastric region of the abdomen (thought to represent the afferent limb) was never visualized radiographically as evidenced by the drill press hand film from the CT done yesterday. The bowel gas pattern on the current evaluation is nonspecific. Surgical clips extensively noted in the epigastric region of the abdomen. Anastomotic sutures in the left upper quadrant are noted. Bones are unremarkable. Impression: No change appreciated radiographically compared to one day earlier. The dilated loop of small bowel seen on yesterday's CT was not seen on the drill press hand plain film because the dilated bowel is fluid-filled. Whether this has changed or not is unknown.
--- NOTE | 2017-05-09 11:42 | GI Progress Note ---
Assessment/Plan Problems: (1) Ileus ICD Codes: K56.7 - Ileus, unspecified SNOMED: 494877365 (2) Pancreatitis, alcoholic, acute ICD Codes: K85.20 - Alcohol induced acute pancreatitis without necrosis or infection SNOMED: 851492999 (3) Abdominal pain ICD Codes: R10.9 - Unspecified abdominal pain SNOMED: 54230878 (4) Leukocytosis ICD Codes: D72.829 - Elevated white blood cell count, unspecified SNOMED: 936540636, 227261092 (5) Duodenal obstruction ICD Codes: K31.5 - Obstruction of duodenum SNOMED: 72955811 (6) S/P partial gastrectomy ICD Codes: Z90.3 - Acquired absence of stomach [part of] SNOMED: 883214773, 57067139 Status: progressing Status Narrative Discussed with Dr. King. Assessment/Plan APCT reviewed >> suspicion of bowel obstruction in the upper abdomen vs focal ileus given that the adjacent pancreatic head shows evidence of acute pancreatitis, see full report. - most likely focal ileus given ETOH pancreatitis. follow up KUB >> inconclusive fu SB follow through fu surgery recs monitor lipase levels >> normal now adv to CLD only. pain mgmt ppi IV fu labs Subjective Subjective no pain hungry Objective Last 24 Hour Vital Signs Date Time Temp Pulse Resp B/P Pulse Ox O2 Delivery O2 Flow Rate FiO2 05/09/17 08:04 97.5 71 15 108/78 96 Room Air 05/09/17 04:16 97.9 81 19 132/75 96 Room Air 05/09/17 00:08 98.1 80 18 130/70 95 Room Air 05/08/17 20:24 98.1 76 19 127/79 97 Room Air 05/08/17 20:00 98.8 68 17 169/97 98 Room Air 05/08/17 16:00 96.2 66 18 120/74 95 Room Air 05/08/17 12:00 96.3 67 17 115/68 100 Room Air Intake and Output 05/08/17 05/09/17 19:00 07:00 Intake Total 730 ml 1045 ml Balance 730 ml 1045 ml Intake Oral 240 ml IV Total 730 ml 805 ml # Voids 2 2 Laboratory Tests Test 05/09/17 05:35 White Blood Count 7.1 K/UL (4.8-10.8) Red Blood Count 4.11 M/UL (4.70-6.10) L Hemoglobin 13.9 G/DL (14.2-18.0) L Hematocrit 42.2 % (42.0-52.0) Mean Corpuscular Volume 103 FL (80-99) H Mean Corpuscular Hemoglobin 33.9 PG (27.0-31.0) H Mean Corpuscular Hemoglobin Concent 33.0 G/DL (32.0-36.0) Red Cell Distribution Width 11.6 % (11.6-14.8) Platelet Count 165 K/UL (150-450) Mean Platelet Volume 6.6 FL (6.5-10.1) Neutrophils (%) (Auto) 77.1 % (45.0-75.0) H Lymphocytes (%) (Auto) 16.6 % (20.0-45.0) L Monocytes (%) (Auto) 5.2 % (1.0-10.0) Eosinophils (%) (Auto) 0.5 % (0.0-3.0) Basophils (%) (Auto) 0.6 % (0.0-2.0) Sodium Level 139 mEQ/L (135-145) Potassium Level 4.1 mEQ/L (3.4-4.9) Chloride Level 104 mEQ/L (98-107) Carbon Dioxide Level 22 mEQ/L (20-30) Anion Gap 13 (5-15) Blood Urea Nitrogen 19 mg/dL (7-23) Creatinine 0.8 mg/dL (0.7-1.2) Estimat Glomerular Filtration Rate > 60 mL/min (>60) Glucose Level 70 mg/dL (74-106) L Calcium Level 8.6 mg/dL (8.6-10.2) Lipase 43 U/L (< 60) Height (Feet): 5 Height (Inches): 9.00 Weight (Pounds): 145 General Appearance: no apparent distress, alert, thin Cardiovascular: normal rate Respiratory/Chest: normal breath sounds, no respiratory distress Abdominal Exam: normal bowel sounds, non tender, soft Extremities: normal range of motion Marta Wiley N.P. May 09, 2017 11:42
[2017-05-09 12:00] VITALS: BP 109/69
--- NOTE | 2017-05-09 15:30 | General Progress Note ---
Subjective Allergies: Coded Allergies: No Known Allergies (Unverified , 05/07/17) Objective Last 24 Hour Vital Signs Date Time Temp Pulse Resp B/P Pulse Ox O2 Delivery O2 Flow Rate FiO2 05/09/17 12:00 97.0 73 18 109/69 98 Room Air 05/09/17 08:04 97.5 71 15 108/78 96 Room Air 05/09/17 04:16 97.9 81 19 132/75 96 Room Air 05/09/17 00:08 98.1 80 18 130/70 95 Room Air 05/08/17 20:24 98.1 76 19 127/79 97 Room Air 05/08/17 20:00 98.8 68 17 169/97 98 Room Air 05/08/17 16:00 96.2 66 18 120/74 95 Room Air Intake and Output 05/08/17 05/09/17 19:00 07:00 Intake Total 730 ml 1045 ml Balance 730 ml 1045 ml Intake Oral 240 ml IV Total 730 ml 805 ml # Voids 2 2 Laboratory Tests 05/09/17 05:35: White Blood Count 7.1, Red Blood Count 4.11L, Hemoglobin 13.9L, Hematocrit 42.2 , Mean Corpuscular Volume 103H, Mean Corpuscular Hemoglobin 33.9H, Mean Corpuscular Hemoglobin Concent 33.0, Red Cell Distribution Width 11.6, Platelet Count 165, Mean Platelet Volume 6.6, Neutrophils (%) (Auto) 77.1H, Lymphocytes ( %) (Auto) 16.6L, Monocytes (%) (Auto) 5.2, Eosinophils (%) (Auto) 0.5, Basophils (%) (Auto) 0.6, Sodium Level 139, Potassium Level 4.1, Chloride Level 104, Carbon Dioxide Level 22, Anion Gap 13, Blood Urea Nitrogen 19, Creatinine 0.8, Estimat Glomerular Filtration Rate > 60, Glucose Level 70L, Calcium Level 8.6, Lipase 43 Height (Feet): 5 Height (Inches): 9.00 Weight (Pounds): 145 DEVIN CORONADO May 09, 2017 15:30
--- NOTE | 2017-05-09 15:41 | General Progress Note ---
Assessment/Plan Status: stable Status Narrative Lipase normal Assessment/Plan No renal issues Normal renal parameters and negative UA - Nausea, vomiting and abdominal pain. with high Lipase - Status post gastric surgery, it is uncertain whether the patient had a Siria-en-Y repair versus loop of distended small bowel may represent partial obstruction of the apparent limb this may be caused by the pancreatitis involving the head of the pancreas. Per GI and Surg Subjective ROS Limited/Unobtainable: No Constitutional: Reports: malaise Gastrointestinal/Abdominal: Reports: abdominal pain - decreased Allergies: Coded Allergies: No Known Allergies (Unverified , 05/07/17) Objective Last 24 Hour Vital Signs Date Time Temp Pulse Resp B/P Pulse Ox O2 Delivery O2 Flow Rate FiO2 05/09/17 12:00 97.0 73 18 109/69 98 Room Air 05/09/17 08:04 97.5 71 15 108/78 96 Room Air 05/09/17 04:16 97.9 81 19 132/75 96 Room Air 05/09/17 00:08 98.1 80 18 130/70 95 Room Air 05/08/17 20:24 98.1 76 19 127/79 97 Room Air 05/08/17 20:00 98.8 68 17 169/97 98 Room Air 05/08/17 16:00 96.2 66 18 120/74 95 Room Air Intake and Output 05/08/17 05/09/17 19:00 07:00 Intake Total 730 ml 1045 ml Balance 730 ml 1045 ml Intake Oral 240 ml IV Total 730 ml 805 ml # Voids 2 2 Laboratory Tests 05/09/17 05:35: White Blood Count 7.1, Red Blood Count 4.11L, Hemoglobin 13.9L, Hematocrit 42.2 , Mean Corpuscular Volume 103H, Mean Corpuscular Hemoglobin 33.9H, Mean Corpuscular Hemoglobin Concent 33.0, Red Cell Distribution Width 11.6, Platelet Count 165, Mean Platelet Volume 6.6, Neutrophils (%) (Auto) 77.1H, Lymphocytes ( %) (Auto) 16.6L, Monocytes (%) (Auto) 5.2, Eosinophils (%) (Auto) 0.5, Basophils (%) (Auto) 0.6, Sodium Level 139, Potassium Level 4.1, Chloride Level 104, Carbon Dioxide Level 22, Anion Gap 13, Blood Urea Nitrogen 19, Creatinine 0.8, Estimat Glomerular Filtration Rate > 60, Glucose Level 70L, Calcium Level 8.6, Lipase 43 Height (Feet): 5 Height (Inches): 9.00 Weight (Pounds): 145 General Appearance: no apparent distress Abdomen: other - mild tenderness DEVIN CORONADO May 09, 2017 15:41
[2017-05-09 16:00] VITALS: BP 111/69
--- NOTE | 2017-05-09 17:37 | Infectious Diseases Prog Note ---
Assessment/Plan Problems: (1) Left leg cellulitis Assessment & Plan: on cefazoline , await send blood culture (2) Leukocytosis Assessment & Plan: suspect due to cellulitis, rule out sepsis, will send blood culture , and start cefazoline (3) Pancreatitis, alcoholic, acute Assessment & Plan: continue hydration and pain management , consult GI (4) Abdominal pain Assessment & Plan: due to the above, continue pain management (5) Ileus Assessment & Plan: due to pancreatitis , keep npo, continue hydration Subjective Constitutional: Reports: no symptoms HEENT: Reports: no symptoms Cardiovascular: Reports: no symptoms Gastrointestinal/Abdominal: Reports: bloating, nausea Genitourinary: Reports: no symptoms Neurologic: Reports: no symptoms Psychiatric: Reports: no symptoms Skin: Reports: no symptoms Endocrine: Reports: no symptoms Hematologic: Reports: no symptoms Allergies: Coded Allergies: No Known Allergies (Unverified , 05/07/17) Objective Vital Signs Last 24 Hour Vital Signs Date Time Temp Pulse Resp B/P Pulse Ox O2 Delivery O2 Flow Rate FiO2 05/09/17 16:00 97.3 78 20 111/69 97 Room Air 05/09/17 12:00 97.0 73 18 109/69 98 Room Air 05/09/17 08:04 97.5 71 15 108/78 96 Room Air 05/09/17 04:16 97.9 81 19 132/75 96 Room Air 05/09/17 00:08 98.1 80 18 130/70 95 Room Air 05/08/17 20:24 98.1 76 19 127/79 97 Room Air 05/08/17 20:00 98.8 68 17 169/97 98 Room Air Height (Feet): 5 Height (Inches): 9.00 Weight (Pounds): 145 General Appearance: WD/WN, no acute distress HEENT: normocephalic, atraumatic, anicteric, mucous membranes moist, PERRL, pharynx normal, supple Respiratory/Chest: chest wall non-tender, lungs clear, normal breath sounds, no respiratory distress, no accessory muscle use Cardiovascular: normal peripheral pulses, normal rate, regular rhythm, no gallop/murmur, no JVD Abdomen: normal bowel sounds, no organomegaly, non distended, no mass, no scars , hypoactive bowel sounds, tender Extremities: no cyanosis, no clubbing Skin: no rash, no lesions Lymphatic: no neck adenopathy Musculoskeletal: normal muscle bulk, no effusion Laboratory Tests Test 05/09/17 05:35 White Blood Count 7.1 K/UL (4.8-10.8) Red Blood Count 4.11 M/UL (4.70-6.10) L Hemoglobin 13.9 G/DL (14.2-18.0) L Hematocrit 42.2 % (42.0-52.0) Mean Corpuscular Volume 103 FL (80-99) H Mean Corpuscular Hemoglobin 33.9 PG (27.0-31.0) H Mean Corpuscular Hemoglobin Concent 33.0 G/DL (32.0-36.0) Red Cell Distribution Width 11.6 % (11.6-14.8) Platelet Count 165 K/UL (150-450) Mean Platelet Volume 6.6 FL (6.5-10.1) Neutrophils (%) (Auto) 77.1 % (45.0-75.0) H Lymphocytes (%) (Auto) 16.6 % (20.0-45.0) L Monocytes (%) (Auto) 5.2 % (1.0-10.0) Eosinophils (%) (Auto) 0.5 % (0.0-3.0) Basophils (%) (Auto) 0.6 % (0.0-2.0) Sodium Level 139 mEQ/L (135-145) Potassium Level 4.1 mEQ/L (3.4-4.9) Chloride Level 104 mEQ/L (98-107) Carbon Dioxide Level 22 mEQ/L (20-30) Anion Gap 13 (5-15) Blood Urea Nitrogen 19 mg/dL (7-23) Creatinine 0.8 mg/dL (0.7-1.2) Estimat Glomerular Filtration Rate > 60 mL/min (>60) Glucose Level 70 mg/dL (74-106) L Calcium Level 8.6 mg/dL (8.6-10.2) Lipase 43 U/L (< 60) Current Medications Medications (Trade) Dose Ordered Sig/Martha Route PRN Reason Start Time Stop Time Status Last Admin Dose Admin Cefazolin Sodium/ Dextrose (Ancef/D5W) 55 ml @ 110 mls/hr Q8HR IVPB 05/08/17 17:00 05/15/17 16:59 05/09/17 13:54 Fluoxetine HCl (PROzac) 20 mg DAILY ORAL 05/09/17 09:00 06/08/17 08:59 Folic Acid (Folate) 1 mg DAILY ORAL 05/09/17 09:00 06/08/17 08:59 Morphine Sulfate (Morphine Sulfate) 4 mg Q4H PRN IVP For Pain 05/08/17 00:30 05/15/17 00:29 Ondansetron HCl 4 mg 4 mg Q6H PRN IVP Nausea & Vomiting 05/08/17 00:30 06/07/17 00:29 Sodium (0.45%NS w/KCl 20mEq 1000ml) 1,000 ml @ 75 mls/hr [id number] IV 05/08/17 00:30 06/07/17 00:29 05/09/17 17:20 Thiamine HCl (Vitamin B1) 100 mg DAILY ORAL 05/09/17 09:00 06/08/17 08:59 Reid Rojas M.D. May 09, 2017 17:37
[2017-05-09 20:00] VITALS: BP 113/64
--- NOTE | 2017-05-09 20:04 | General Progress Note ---
Assessment/Plan Problem List: (1) Abdominal pain ICD Codes: R10.9 - Unspecified abdominal pain SNOMED: 43714325 (2) Pancreatitis, alcoholic, acute ICD Codes: K85.20 - Alcohol induced acute pancreatitis without necrosis or infection SNOMED: 782773102 (3) Leukocytosis ICD Codes: D72.829 - Elevated white blood cell count, unspecified SNOMED: 683059542, 781571326 Status: progressing Assessment/Plan abdominal pain afebrile vitals stable no sbo Subjective Gastrointestinal/Abdominal: Reports: abdominal pain Allergies: Coded Allergies: No Known Allergies (Unverified , 05/07/17) Objective Last 24 Hour Vital Signs Date Time Temp Pulse Resp B/P Pulse Ox O2 Delivery O2 Flow Rate FiO2 05/09/17 16:00 97.3 78 20 111/69 97 Room Air 05/09/17 12:00 97.0 73 18 109/69 98 Room Air 05/09/17 08:04 97.5 71 15 108/78 96 Room Air 05/09/17 04:16 97.9 81 19 132/75 96 Room Air 05/09/17 00:08 98.1 80 18 130/70 95 Room Air 05/08/17 20:24 98.1 76 19 127/79 97 Room Air Intake and Output 05/08/17 05/09/17 19:00 07:00 Intake Total 730 ml 1045 ml Balance 730 ml 1045 ml Intake Oral 240 ml IV Total 730 ml 805 ml # Voids 2 2 Laboratory Tests 05/09/17 05:35: White Blood Count 7.1, Red Blood Count 4.11L, Hemoglobin 13.9L, Hematocrit 42.2 , Mean Corpuscular Volume 103H, Mean Corpuscular Hemoglobin 33.9H, Mean Corpuscular Hemoglobin Concent 33.0, Red Cell Distribution Width 11.6, Platelet Count 165, Mean Platelet Volume 6.6, Neutrophils (%) (Auto) 77.1H, Lymphocytes ( %) (Auto) 16.6L, Monocytes (%) (Auto) 5.2, Eosinophils (%) (Auto) 0.5, Basophils (%) (Auto) 0.6, Sodium Level 139, Potassium Level 4.1, Chloride Level 104, Carbon Dioxide Level 22, Anion Gap 13, Blood Urea Nitrogen 19, Creatinine 0.8, Estimat Glomerular Filtration Rate > 60, Glucose Level 70L, Calcium Level 8.6, Lipase 43 Height (Feet): 5 Height (Inches): 9.00 Weight (Pounds): 145 Cardiovascular: normal rate Abdomen: tender Marie Richard MD May 09, 2017 20:04
--- NOTE | 2017-05-09 23:55 | General Progress Note ---
Assessment/Plan Status: stable, not improved Assessment/Plan cognitive impairment due to alcohol use alcohol depe cont current meds Subjective Constitutional: Reports: malaise, weakness Neurologic/Psychiatric: Reports: anxiety, depressed, emotional problems Allergies: Coded Allergies: No Known Allergies (Unverified , 05/07/17) All Systems: reviewed and negative except above Objective Last 24 Hour Vital Signs Date Time Temp Pulse Resp B/P Pulse Ox O2 Delivery O2 Flow Rate FiO2 05/09/17 20:00 97.5 62 18 113/64 97 Room Air 05/09/17 16:00 97.3 78 20 111/69 97 Room Air 05/09/17 12:00 97.0 73 18 109/69 98 Room Air 05/09/17 08:04 97.5 71 15 108/78 96 Room Air 05/09/17 04:16 97.9 81 19 132/75 96 Room Air 05/09/17 00:08 98.1 80 18 130/70 95 Room Air Intake and Output 05/08/17 05/09/17 19:00 07:00 Intake Total 730 ml 1045 ml Balance 730 ml 1045 ml Intake Oral 240 ml IV Total 730 ml 805 ml # Voids 2 2 Laboratory Tests 05/09/17 05:35: White Blood Count 7.1, Red Blood Count 4.11L, Hemoglobin 13.9L, Hematocrit 42.2 , Mean Corpuscular Volume 103H, Mean Corpuscular Hemoglobin 33.9H, Mean Corpuscular Hemoglobin Concent 33.0, Red Cell Distribution Width 11.6, Platelet Count 165, Mean Platelet Volume 6.6, Neutrophils (%) (Auto) 77.1H, Lymphocytes ( %) (Auto) 16.6L, Monocytes (%) (Auto) 5.2, Eosinophils (%) (Auto) 0.5, Basophils (%) (Auto) 0.6, Sodium Level 139, Potassium Level 4.1, Chloride Level 104, Carbon Dioxide Level 22, Anion Gap 13, Blood Urea Nitrogen 19, Creatinine 0.8, Estimat Glomerular Filtration Rate > 60, Glucose Level 70L, Calcium Level 8.6, Lipase 43 Height (Feet): 5 Height (Inches): 9.00 Weight (Pounds): 145 General Appearance: no apparent distress, alert, confused, thin Neurologic: alert, oriented x 3, responsive, disoriented, depressed affect Brian Cam M.D. May 09, 2017 23:55
[2017-05-10 00:19] VITALS: BP 110/66
[2017-05-10 04:00] VITALS: BP 122/73
[2017-05-10] MEDS: 1/2NS w/KCl 20mEq 1000ml 1,000 ML IV SCH (06:10)
[2017-05-10] MEDS: ceFAZolin sod 1 GM in D5W 55 ML IVPB SCH ×2 (06:11→14:11)
[2017-05-10 06:24] LABS: BASOPHILS % (AUTO) 1.5 % (0.0-2.0); LYMPHOCYTES % (AUTO) 27.4 % (20.0-45.0); MEAN CORPUSCULAR HGB CONC 33.7 G/DL (32.0-36.0); MEAN CORPUSCULAR VOLUME 101 FL (80-99); MEAN PLATELET VOLUME 6.3 FL (6.5-10.1); MONOCYTES % (AUTO) 7.3 % (1.0-10.0); NEUTROPHILS % (AUTO) 62.9 % (45.0-75.0); PLATELET COUNT 187 K/UL (150-450); RED BLOOD COUNT 3.99 M/UL (4.70-6.10); RED CELL DISTRIBUTION WIDTH 11.4 % (11.6-14.8); WHITE BLOOD COUNT 5.6 K/UL (4.8-10.8)
[2017-05-10 07:11] LABS: ANION GAP 10 (5-15); CALCIUM 8.5 mg/dL (8.6-10.2); CARBON DIOXIDE 24 mEQ/L (20-30); CHLORIDE 105 mEQ/L (98-107); CREATININE 0.8 mg/dL (0.7-1.2); GLOMERULAR FILTRATION RATE > 60 mL/min (>60); HEMOLYSIS 8; POTASSIUM 4.2 mEQ/L (3.4-4.9); SODIUM 139 mEQ/L (135-145)
[2017-05-10 08:00] VITALS: BP 129/77
--- NOTE | 2017-05-10 08:26 | General Progress Note ---
Assessment/Plan Status: stable Assessment/Plan No renal issues Normal renal parameters and negative UA - Nausea, vomiting and abdominal pain. with high Lipase - Status post gastric surgery, it is uncertain whether the patient had a Siria-en-Y repair versus loop of distended small bowel may represent partial obstruction of the apparent limb this may be caused by the pancreatitis involving the head of the pancreas. Per GI and Surg Subjective ROS Limited/Unobtainable: No Allergies: Coded Allergies: No Known Allergies (Unverified , 05/07/17) Objective Last 24 Hour Vital Signs Date Time Temp Pulse Resp B/P Pulse Ox O2 Delivery O2 Flow Rate FiO2 05/10/17 04:00 97.9 58 19 122/73 96 Room Air 05/10/17 00:19 97.6 64 19 110/66 97 Room Air 05/09/17 20:00 97.5 62 18 113/64 97 Room Air 05/09/17 16:00 97.3 78 20 111/69 97 Room Air 05/09/17 12:00 97.0 73 18 109/69 98 Room Air Intake and Output 05/09/17 05/10/17 19:00 07:00 Intake Total 1320 ml 1120 ml Balance 1320 ml 1120 ml Intake Oral 720 ml 240 ml IV Total 600 ml 880 ml # Voids 4 3 Laboratory Tests 05/10/17 05:00: White Blood Count 5.6, Red Blood Count 3.99L, Hemoglobin 13.6L, Hematocrit 40.2L , Mean Corpuscular Volume 101H, Mean Corpuscular Hemoglobin 34.0H, Mean Corpuscular Hemoglobin Concent 33.7, Red Cell Distribution Width 11.4L, Platelet Count 187, Mean Platelet Volume 6.3L, Neutrophils (%) (Auto) 62.9, Lymphocytes (%) (Auto) 27.4, Monocytes (%) (Auto) 7.3, Eosinophils (%) (Auto) 1.0, Basophils (%) (Auto) 1.5, Sodium Level 139, Potassium Level 4.2, Chloride Level 105, Carbon Dioxide Level 24, Anion Gap 10, Blood Urea Nitrogen 14, Creatinine 0.8, Estimat Glomerular Filtration Rate > 60, Glucose Level 90, Calcium Level 8.5L Height (Feet): 5 Height (Inches): 9.00 Weight (Pounds): 145 General Appearance: no apparent distress Abdomen: soft Objective no change in PE DEVIN CORONADO May 10, 2017 08:26
[2017-05-10] MEDS: Thiamine 100mg tab ORAL SCH (08:48)
--- NOTE | 2017-05-10 11:07 | GI Progress Note ---
Assessment/Plan Problems: (1) Ileus ICD Codes: K56.7 - Ileus, unspecified SNOMED: 166115701 (2) Pancreatitis, alcoholic, acute ICD Codes: K85.20 - Alcohol induced acute pancreatitis without necrosis or infection SNOMED: 977909540 (3) Abdominal pain ICD Codes: R10.9 - Unspecified abdominal pain SNOMED: 26363544 (4) Leukocytosis ICD Codes: D72.829 - Elevated white blood cell count, unspecified SNOMED: 380022314, 009680364 (5) Duodenal obstruction ICD Codes: K31.5 - Obstruction of duodenum SNOMED: 52055525 (6) S/P partial gastrectomy ICD Codes: Z90.3 - Acquired absence of stomach [part of] SNOMED: 630897576, 25537456 Status: progressing, unchanged Status Narrative Discussed with Dr. King. Assessment/Plan APCT reviewed >> suspicion of bowel obstruction in the upper abdomen vs focal ileus given that the adjacent pancreatic head shows evidence of acute pancreatitis, see full report. - most likely focal ileus given ETOH pancreatitis. monitor lipase levels >> normal now fu SB follow through [facility], will adv pending SB x-ray pain mgmt ppi IV fu labs fu surgery recs Subjective Subjective no pain hungry Objective Last 24 Hour Vital Signs Date Time Temp Pulse Resp B/P Pulse Ox O2 Delivery O2 Flow Rate FiO2 05/10/17 08:00 98.1 64 20 129/77 98 Room Air 05/10/17 04:00 97.9 58 19 122/73 96 Room Air 05/10/17 00:19 97.6 64 19 110/66 97 Room Air 05/09/17 20:00 97.5 62 18 113/64 97 Room Air 05/09/17 16:00 97.3 78 20 111/69 97 Room Air 05/09/17 12:00 97.0 73 18 109/69 98 Room Air Intake and Output 05/09/17 05/10/17 18:59 06:59 Intake Total 1245 ml 1140 ml Balance 1245 ml 1140 ml Intake Oral 720 ml 240 ml IV Total 525 ml 900 ml # Voids 4 3 Laboratory Tests Test 05/10/17 05:00 White Blood Count 5.6 K/UL (4.8-10.8) Red Blood Count 3.99 M/UL (4.70-6.10) L Hemoglobin 13.6 G/DL (14.2-18.0) L Hematocrit 40.2 % (42.0-52.0) L Mean Corpuscular Volume 101 FL (80-99) H Mean Corpuscular Hemoglobin 34.0 PG (27.0-31.0) H Mean Corpuscular Hemoglobin Concent 33.7 G/DL (32.0-36.0) Red Cell Distribution Width 11.4 % (11.6-14.8) L Platelet Count 187 K/UL (150-450) Mean Platelet Volume 6.3 FL (6.5-10.1) L Neutrophils (%) (Auto) 62.9 % (45.0-75.0) Lymphocytes (%) (Auto) 27.4 % (20.0-45.0) Monocytes (%) (Auto) 7.3 % (1.0-10.0) Eosinophils (%) (Auto) 1.0 % (0.0-3.0) Basophils (%) (Auto) 1.5 % (0.0-2.0) Sodium Level 139 mEQ/L (135-145) Potassium Level 4.2 mEQ/L (3.4-4.9) Chloride Level 105 mEQ/L (98-107) Carbon Dioxide Level 24 mEQ/L (20-30) Anion Gap 10 (5-15) Blood Urea Nitrogen 14 mg/dL (7-23) Creatinine 0.8 mg/dL (0.7-1.2) Estimat Glomerular Filtration Rate > 60 mL/min (>60) Glucose Level 90 mg/dL (74-106) Calcium Level 8.5 mg/dL (8.6-10.2) L Height (Feet): 5 Height (Inches): 9.00 Weight (Pounds): 145 General Appearance: no apparent distress, alert, thin Cardiovascular: normal rate Respiratory/Chest: normal breath sounds, no respiratory distress Abdominal Exam: normal bowel sounds, non tender, soft Marta Wiley N.POmar May 10, 2017 11:07
--- NOTE | 2017-05-10 11:42 | Diagnostic Imaging Report ---
Indication: Abdominal pain. Findings: A small bowel series was performed utilizing water-soluble contrast material. Recent CT abdomen pelvis was reviewed. Partial gastrectomy is noted. There is a gastrojejunostomy demonstrated. Contrast flows immediately into the gastrojejunostomy into what is presumably the efferent bowel. Transit time is normal with contrast reaching the colon fairly rapidly by about 30 minutes. As is often the case, the examination does not show the afferent limb, which by CT was abnormal and dilated. The possibility of obstruction of the afferent limb or dilatation on the basis of ileus (from pancreatitis) has been discussed with the surgical staff. Impression: Negative small bowel series. Partial gastrectomy with opacification of the efferent limb and remainder of small bowel appears normal.
[2017-05-10 11:43] VITALS: BP 123/81
--- NOTE | 2017-05-10 14:31 | General Progress Note ---
Assessment/Plan Status: doing well, stable, progressing Assessment/Plan cognitive impairment due to alcohol use alcohol dependence cont current meds Subjective Constitutional: Reports: weakness Allergies: Coded Allergies: No Known Allergies (Unverified , 05/07/17) Subjective was found in bed watching a movie. the pt was more engage still a poor historian. he stated that he is from [place] however he is Syriac. sleep adequate. less anxiety Objective Last 24 Hour Vital Signs Date Time Temp Pulse Resp B/P Pulse Ox O2 Delivery O2 Flow Rate FiO2 05/10/17 11:43 98.2 88 18 123/81 97 Room Air 05/10/17 08:00 98.1 64 20 129/77 98 Room Air 05/10/17 04:00 97.9 58 19 122/73 96 Room Air 05/10/17 00:19 97.6 64 19 110/66 97 Room Air 05/09/17 20:00 97.5 62 18 113/64 97 Room Air 05/09/17 16:00 97.3 78 20 111/69 97 Room Air Intake and Output 05/09/17 05/10/17 19:00 07:00 Intake Total 1320 ml 1120 ml Balance 1320 ml 1120 ml Intake Oral 720 ml 240 ml IV Total 600 ml 880 ml # Voids 4 3 Laboratory Tests 05/10/17 05:00: White Blood Count 5.6, Red Blood Count 3.99L, Hemoglobin 13.6L, Hematocrit 40.2L , Mean Corpuscular Volume 101H, Mean Corpuscular Hemoglobin 34.0H, Mean Corpuscular Hemoglobin Concent 33.7, Red Cell Distribution Width 11.4L, Platelet Count 187, Mean Platelet Volume 6.3L, Neutrophils (%) (Auto) 62.9, Lymphocytes (%) (Auto) 27.4, Monocytes (%) (Auto) 7.3, Eosinophils (%) (Auto) 1.0, Basophils (%) (Auto) 1.5, Sodium Level 139, Potassium Level 4.2, Chloride Level 105, Carbon Dioxide Level 24, Anion Gap 10, Blood Urea Nitrogen 14, Creatinine 0.8, Estimat Glomerular Filtration Rate > 60, Glucose Level 90, Calcium Level 8.5L Height (Feet): 5 Height (Inches): 9.00 Weight (Pounds): 145 General Appearance: no apparent distress, alert, thin Neurologic: alert, oriented x 3, responsive, depressed affect Brian Cam M.D. May 10, 2017 14:31
[2017-05-10 16:00] VITALS: BP 123/68
--- NOTE | 2017-05-10 16:52 | Infectious Diseases Prog Note ---
Assessment/Plan Problems: (1) Left leg cellulitis Assessment & Plan: improved on cefazoline , blood culture is negative , will D/C cefazoline (2) Leukocytosis Assessment & Plan: resolved, suspect due to cellulitis, no evidence of sepsis, blood culture is negative, will stop cefazoline (3) Pancreatitis, alcoholic, acute Assessment & Plan: continue hydration and pain management , consult GI (4) Abdominal pain Assessment & Plan: due to the above, continue pain management (5) Ileus Assessment & Plan: due to pancreatitis , improved, advance diet, continue hydration Subjective ROS Limited/Unobtainable: Yes Constitutional: Reports: no symptoms HEENT: Reports: no symptoms Respiratory: Reports: no symptoms Breasts: Reports: no symptoms Cardiovascular: Reports: no symptoms Gastrointestinal/Abdominal: Reports: no symptoms Genitourinary: Reports: no symptoms Neurologic: Reports: no symptoms Psychiatric: Reports: no symptoms Skin: Reports: no symptoms Endocrine: Reports: no symptoms Hematologic: Reports: no symptoms Allergies: Coded Allergies: No Known Allergies (Unverified , 05/07/17) Objective Vital Signs Last 24 Hour Vital Signs Date Time Temp Pulse Resp B/P Pulse Ox O2 Delivery O2 Flow Rate FiO2 05/10/17 16:00 98.0 74 20 123/68 99 Room Air 05/10/17 11:43 98.2 88 18 123/81 97 Room Air 05/10/17 08:00 98.1 64 20 129/77 98 Room Air 05/10/17 04:00 97.9 58 19 122/73 96 Room Air 05/10/17 00:19 97.6 64 19 110/66 97 Room Air 05/09/17 20:00 97.5 62 18 113/64 97 Room Air Height (Feet): 5 Height (Inches): 9.00 Weight (Pounds): 145 General Appearance: WD/WN, no acute distress HEENT: normocephalic, atraumatic, anicteric, mucous membranes moist, PERRL, EOMI, pharynx normal, supple, no JVD Respiratory/Chest: chest wall non-tender, lungs clear, normal breath sounds, no respiratory distress, no accessory muscle use Cardiovascular: normal peripheral pulses, normal rate, regular rhythm, no gallop/murmur, no JVD Abdomen: normal bowel sounds, soft, non tender, no organomegaly, non distended , no mass, no scars Extremities: no cyanosis, no clubbing Skin: no rash, no lesions, no ulcers, other - leg wound scab Neurologic/Psychiatric: mercerizing range feeder II-XII grossly normal, no motor/sensory deficits Musculoskeletal: normal muscle bulk, no effusion Microbiology Date/Time Source Procedure Growth Status 05/08/17 20:45 Blood Blood Culture - Preliminary NO GROWTH AFTER 24 HOURS Resulted 05/08/17 20:35 Blood Blood Culture - Preliminary NO GROWTH AFTER 24 HOURS Resulted Laboratory Tests Test 05/10/17 05:00 White Blood Count 5.6 K/UL (4.8-10.8) Red Blood Count 3.99 M/UL (4.70-6.10) L Hemoglobin 13.6 G/DL (14.2-18.0) L Hematocrit 40.2 % (42.0-52.0) L Mean Corpuscular Volume 101 FL (80-99) H Mean Corpuscular Hemoglobin 34.0 PG (27.0-31.0) H Mean Corpuscular Hemoglobin Concent 33.7 G/DL (32.0-36.0) Red Cell Distribution Width 11.4 % (11.6-14.8) L Platelet Count 187 K/UL (150-450) Mean Platelet Volume 6.3 FL (6.5-10.1) L Neutrophils (%) (Auto) 62.9 % (45.0-75.0) Lymphocytes (%) (Auto) 27.4 % (20.0-45.0) Monocytes (%) (Auto) 7.3 % (1.0-10.0) Eosinophils (%) (Auto) 1.0 % (0.0-3.0) Basophils (%) (Auto) 1.5 % (0.0-2.0) Sodium Level 139 mEQ/L (135-145) Potassium Level 4.2 mEQ/L (3.4-4.9) Chloride Level 105 mEQ/L (98-107) Carbon Dioxide Level 24 mEQ/L (20-30) Anion Gap 10 (5-15) Blood Urea Nitrogen 14 mg/dL (7-23) Creatinine 0.8 mg/dL (0.7-1.2) Estimat Glomerular Filtration Rate > 60 mL/min (>60) Glucose Level 90 mg/dL (74-106) Calcium Level 8.5 mg/dL (8.6-10.2) L Current Medications Medications (Trade) Dose Ordered Sig/Martha Route PRN Reason Start Time Stop Time Status Last Admin Dose Admin Cefazolin Sodium/ Dextrose (Ancef/D5W) 55 ml @ 110 mls/hr Q8HR IVPB 05/08/17 17:00 05/15/17 16:59 05/10/17 14:11 Fluoxetine HCl (PROzac) 20 mg DAILY ORAL 05/09/17 09:00 06/08/17 08:59 05/10/17 08:48 Folic Acid (Folate) 1 mg DAILY ORAL 05/09/17 09:00 06/08/17 08:59 05/10/17 08:48 Morphine Sulfate (Morphine Sulfate) 4 mg Q4H PRN IVP For Pain 05/08/17 00:30 05/15/17 00:29 Ondansetron HCl 4 mg 4 mg Q6H PRN IVP Nausea & Vomiting 05/08/17 00:30 06/07/17 00:29 Thiamine HCl (Vitamin B1) 100 mg DAILY ORAL 05/09/17 09:00 06/08/17 08:59 05/10/17 08:48 Reid Rojas M.D. May 10, 2017 16:52
[2017-05-10 20:00] VITALS: BP 137/88
--- NOTE | 2017-05-10 20:33 | General Progress Note ---
Assessment/Plan Problem List: (1) Abdominal pain ICD Codes: R10.9 - Unspecified abdominal pain SNOMED: 19661953 (2) Pancreatitis, alcoholic, acute ICD Codes: K85.20 - Alcohol induced acute pancreatitis without necrosis or infection SNOMED: 853793329 (3) Leukocytosis ICD Codes: D72.829 - Elevated white blood cell count, unspecified SNOMED: 276025101, 151076864 Status: progressing Assessment/Plan pancreatitis is improving no sbo afebrile leukocytosis give fluids npo clinically improving Subjective Gastrointestinal/Abdominal: Reports: abdominal pain Allergies: Coded Allergies: No Known Allergies (Unverified , 05/07/17) Objective Last 24 Hour Vital Signs Date Time Temp Pulse Resp B/P Pulse Ox O2 Delivery O2 Flow Rate FiO2 05/10/17 16:00 98.0 74 20 123/68 99 Room Air 05/10/17 11:43 98.2 88 18 123/81 97 Room Air 05/10/17 08:00 98.1 64 20 129/77 98 Room Air 05/10/17 04:00 97.9 58 19 122/73 96 Room Air 05/10/17 00:19 97.6 64 19 110/66 97 Room Air Intake and Output 05/09/17 05/10/17 19:00 07:00 Intake Total 1320 ml 1120 ml Balance 1320 ml 1120 ml Intake Oral 720 ml 240 ml IV Total 600 ml 880 ml # Voids 4 3 Laboratory Tests 05/10/17 05:00: White Blood Count 5.6, Red Blood Count 3.99L, Hemoglobin 13.6L, Hematocrit 40.2L , Mean Corpuscular Volume 101H, Mean Corpuscular Hemoglobin 34.0H, Mean Corpuscular Hemoglobin Concent 33.7, Red Cell Distribution Width 11.4L, Platelet Count 187, Mean Platelet Volume 6.3L, Neutrophils (%) (Auto) 62.9, Lymphocytes (%) (Auto) 27.4, Monocytes (%) (Auto) 7.3, Eosinophils (%) (Auto) 1.0, Basophils (%) (Auto) 1.5, Sodium Level 139, Potassium Level 4.2, Chloride Level 105, Carbon Dioxide Level 24, Anion Gap 10, Blood Urea Nitrogen 14, Creatinine 0.8, Estimat Glomerular Filtration Rate > 60, Glucose Level 90, Calcium Level 8.5L Height (Feet): 5 Height (Inches): 9.00 Weight (Pounds): 145 Cardiovascular: normal rate Marie Richard MD May 10, 2017 20:33
[2017-05-11] VITALS: BP 142/77
[2017-05-11 04:00] VITALS: BP 116/74
[2017-05-11 08:04] VITALS: BP 121/78
[2017-05-11] MEDS: Thiamine 100mg tab ORAL SCH (08:44)
[2017-05-11 08:54] LABS: BASOPHILS % (AUTO) 0.7 % (0.0-2.0); EOSINOPHILS % (AUTO) 1.3 % (0.0-3.0); LYMPHOCYTES % (AUTO) 24.2 % (20.0-45.0); MEAN CORPUSCULAR HEMOGLOBIN 34.4 PG (27.0-31.0); MEAN CORPUSCULAR VOLUME 101 FL (80-99); MEAN PLATELET VOLUME 6.8 FL (6.5-10.1); MONOCYTES % (AUTO) 8.5 % (1.0-10.0); NEUTROPHILS % (AUTO) 65.3 % (45.0-75.0); PLATELET COUNT 177 K/UL (150-450); RED CELL DISTRIBUTION WIDTH 11.2 % (11.6-14.8); WHITE BLOOD COUNT 5.8 K/UL (4.8-10.8)
[2017-05-11 08:58] LABS: ANION GAP 11 (5-15); CALCIUM 8.8 mg/dL (8.6-10.2); CARBON DIOXIDE 25 mEQ/L (20-30); CHLORIDE 102 mEQ/L (98-107); CREATININE 0.8 mg/dL (0.7-1.2); GLOMERULAR FILTRATION RATE > 60 mL/min (>60); HEMOLYSIS 9; POTASSIUM 3.7 mEQ/L (3.4-4.9); SODIUM 138 mEQ/L (135-145)
[2017-05-11 12:00] VITALS: BP 110/65
--- NOTE | 2017-05-11 14:23 | Infectious Diseases Prog Note ---
Assessment/Plan Problems: (1) Left leg cellulitis Assessment & Plan: improved on cefazoline , blood culture is negative , off cefazoline (2) Leukocytosis Assessment & Plan: resolved, suspect due to cellulitis, no evidence of sepsis, blood culture is negative, will stop cefazoline (3) Pancreatitis, alcoholic, acute Assessment & Plan: continue hydration and pain management , further management as per GI (4) Abdominal pain Assessment & Plan: due to the above, continue pain management (5) Ileus Assessment & Plan: due to pancreatitis , improved, advance diet, continue hydration Subjective Constitutional: Reports: no symptoms HEENT: Reports: no symptoms Respiratory: Reports: no symptoms Breasts: Reports: no symptoms Cardiovascular: Reports: no symptoms Gastrointestinal/Abdominal: Reports: no symptoms Genitourinary: Reports: no symptoms Neurologic: Reports: no symptoms Psychiatric: Reports: no symptoms Skin: Reports: no symptoms Allergies: Coded Allergies: No Known Allergies (Unverified , 05/07/17) Objective Vital Signs Last 24 Hour Vital Signs Date Time Temp Pulse Resp B/P Pulse Ox O2 Delivery O2 Flow Rate FiO2 05/11/17 12:00 97.6 77 18 110/65 96 Room Air 05/11/17 08:04 97.9 72 121/78 Room Air 05/11/17 04:00 98.1 59 15 116/74 98 Room Air 05/11/17 00:00 98.2 64 16 142/77 98 Room Air 05/10/17 20:00 98.2 65 17 137/88 99 Room Air 05/10/17 16:00 98.0 74 20 123/68 99 Room Air Height (Feet): 5 Height (Inches): 9.00 Weight (Pounds): 145 General Appearance: WD/WN, no acute distress HEENT: normocephalic, atraumatic, anicteric, mucous membranes moist, supple, no JVD Respiratory/Chest: chest wall non-tender, lungs clear, normal breath sounds, no respiratory distress, no accessory muscle use Cardiovascular: normal peripheral pulses, normal rate, regular rhythm, no gallop/murmur, no JVD Abdomen: normal bowel sounds, soft, non tender, no organomegaly, non distended , no mass Extremities: no cyanosis, no clubbing Skin: no rash, no lesions, no ulcers Musculoskeletal: normal muscle bulk, no effusion Microbiology Date/Time Source Procedure Growth Status 05/08/17 20:45 Blood Blood Culture - Preliminary NO GROWTH AFTER 48 HOURS Resulted 05/08/17 20:35 Blood Blood Culture - Preliminary NO GROWTH AFTER 48 HOURS Resulted Laboratory Tests Test 05/11/17 06:55 White Blood Count 5.8 K/UL (4.8-10.8) Red Blood Count 4.10 M/UL (4.70-6.10) L Hemoglobin 14.1 G/DL (14.2-18.0) L Hematocrit 41.5 % (42.0-52.0) L Mean Corpuscular Volume 101 FL (80-99) H Mean Corpuscular Hemoglobin 34.4 PG (27.0-31.0) H Mean Corpuscular Hemoglobin Concent 34.0 G/DL (32.0-36.0) Red Cell Distribution Width 11.2 % (11.6-14.8) L Platelet Count 177 K/UL (150-450) Mean Platelet Volume 6.8 FL (6.5-10.1) Neutrophils (%) (Auto) 65.3 % (45.0-75.0) Lymphocytes (%) (Auto) 24.2 % (20.0-45.0) Monocytes (%) (Auto) 8.5 % (1.0-10.0) Eosinophils (%) (Auto) 1.3 % (0.0-3.0) Basophils (%) (Auto) 0.7 % (0.0-2.0) Sodium Level 138 mEQ/L (135-145) Potassium Level 3.7 mEQ/L (3.4-4.9) Chloride Level 102 mEQ/L (98-107) Carbon Dioxide Level 25 mEQ/L (20-30) Anion Gap 11 (5-15) Blood Urea Nitrogen 12 mg/dL (7-23) Creatinine 0.8 mg/dL (0.7-1.2) Estimat Glomerular Filtration Rate > 60 mL/min (>60) Glucose Level 89 mg/dL (74-106) Calcium Level 8.8 mg/dL (8.6-10.2) Current Medications Medications (Trade) Dose Ordered Sig/Martha Route PRN Reason Start Time Stop Time Status Last Admin Dose Admin Fluoxetine HCl (PROzac) 20 mg DAILY ORAL 05/09/17 09:00 06/08/17 08:59 05/11/17 08:44 Folic Acid (Folate) 1 mg DAILY ORAL 05/09/17 09:00 06/08/17 08:59 05/11/17 08:44 Morphine Sulfate (Morphine Sulfate) 4 mg Q4H PRN IVP For Pain 05/08/17 00:30 05/15/17 00:29 Ondansetron HCl (Zofran) 4 mg Q6H PRN IVP Nausea & Vomiting 05/08/17 00:30 06/07/17 00:29 Thiamine HCl (Vitamin B1) 100 mg DAILY ORAL 05/09/17 09:00 06/08/17 08:59 05/11/17 08:44 Reid Rojas M.D. May 11, 2017 14:23
--- NOTE | 2017-05-11 15:08 | General Progress Note ---
Assessment/Plan Status: stable Assessment/Plan No renal issues Normal renal parameters and negative UA - Nausea, vomiting and abdominal pain. with high Lipase - Status post gastric surgery, it is uncertain whether the patient had a Siria-en-Y repair versus loop of distended small bowel may represent partial obstruction of the apparent limb this may be caused by the pancreatitis involving the head of the pancreas. Per GI and Surg Subjective ROS Limited/Unobtainable: No Allergies: Coded Allergies: No Known Allergies (Unverified , 05/07/17) Objective Last 24 Hour Vital Signs Date Time Temp Pulse Resp B/P Pulse Ox O2 Delivery O2 Flow Rate FiO2 05/11/17 12:00 97.6 77 18 110/65 96 Room Air 05/11/17 08:04 97.9 72 121/78 Room Air 05/11/17 04:00 98.1 59 15 116/74 98 Room Air 05/11/17 00:00 98.2 64 16 142/77 98 Room Air 05/10/17 20:00 98.2 65 17 137/88 99 Room Air 05/10/17 16:00 98.0 74 20 123/68 99 Room Air Intake and Output 05/10/17 05/11/17 19:00 07:00 Intake Total 1215 ml 200 ml Balance 1215 ml 200 ml Intake Oral 1010 ml 200 ml IV Total 205 ml # Voids 2 2 Laboratory Tests 05/11/17 06:55: White Blood Count 5.8, Red Blood Count 4.10L, Hemoglobin 14.1L, Hematocrit 41.5L , Mean Corpuscular Volume 101H, Mean Corpuscular Hemoglobin 34.4H, Mean Corpuscular Hemoglobin Concent 34.0, Red Cell Distribution Width 11.2L, Platelet Count 177, Mean Platelet Volume 6.8, Neutrophils (%) (Auto) 65.3, Lymphocytes (%) (Auto) 24.2, Monocytes (%) (Auto) 8.5, Eosinophils (%) (Auto) 1.3, Basophils (%) (Auto) 0.7, Sodium Level 138, Potassium Level 3.7, Chloride Level 102, Carbon Dioxide Level 25, Anion Gap 11, Blood Urea Nitrogen 12, Creatinine 0.8, Estimat Glomerular Filtration Rate > 60, Glucose Level 89, Calcium Level 8.8 Height (Feet): 5 Height (Inches): 9.00 Weight (Pounds): 145 General Appearance: no apparent distress Objective no change in PE DEVIN CORONADO May 11, 2017 15:08
[2017-05-11 16:00] VITALS: BP 106/72
[2017-05-11 20:03] VITALS: BP 118/66
--- NOTE | 2017-05-11 22:06 | General Progress Note ---
Assessment/Plan Problem List: (1) Abdominal pain ICD Codes: R10.9 - Unspecified abdominal pain SNOMED: 66942347 (2) Pancreatitis, alcoholic, acute ICD Codes: K85.20 - Alcohol induced acute pancreatitis without necrosis or infection SNOMED: 492542342 (3) Leukocytosis ICD Codes: D72.829 - Elevated white blood cell count, unspecified SNOMED: 088252402, 261239083 Status: progressing Assessment/Plan afebrile pancreatitis diet per gi check lipase no sbo clinically improving Subjective ROS Limited/Unobtainable: Yes Gastrointestinal/Abdominal: Reports: abdominal pain Allergies: Coded Allergies: No Known Allergies (Unverified , 05/07/17) Objective Last 24 Hour Vital Signs Date Time Temp Pulse Resp B/P Pulse Ox O2 Delivery O2 Flow Rate FiO2 05/11/17 20:03 98.1 74 18 118/66 95 Room Air 05/11/17 16:00 97.9 68 18 106/72 96 Room Air 05/11/17 12:00 97.6 77 18 110/65 96 Room Air 05/11/17 08:04 97.9 72 121/78 Room Air 05/11/17 04:00 98.1 59 15 116/74 98 Room Air 05/11/17 00:00 98.2 64 16 142/77 98 Room Air Intake and Output 05/10/17 05/11/17 19:00 07:00 Intake Total 1215 ml 200 ml Balance 1215 ml 200 ml Intake Oral 1010 ml 200 ml IV Total 205 ml # Voids 2 2 Laboratory Tests 05/11/17 06:55: White Blood Count 5.8, Red Blood Count 4.10L, Hemoglobin 14.1L, Hematocrit 41.5L , Mean Corpuscular Volume 101H, Mean Corpuscular Hemoglobin 34.4H, Mean Corpuscular Hemoglobin Concent 34.0, Red Cell Distribution Width 11.2L, Platelet Count 177, Mean Platelet Volume 6.8, Neutrophils (%) (Auto) 65.3, Lymphocytes (%) (Auto) 24.2, Monocytes (%) (Auto) 8.5, Eosinophils (%) (Auto) 1.3, Basophils (%) (Auto) 0.7, Sodium Level 138, Potassium Level 3.7, Chloride Level 102, Carbon Dioxide Level 25, Anion Gap 11, Blood Urea Nitrogen 12, Creatinine 0.8, Estimat Glomerular Filtration Rate > 60, Glucose Level 89, Calcium Level 8.8 Height (Feet): 5 Height (Inches): 9.00 Weight (Pounds): 145 Marie Richard MD May 11, 2017 22:06
[2017-05-12 00:04] VITALS: BP 119/69
--- NOTE | 2017-05-12 00:05 | General Progress Note ---
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 sleep adequate. less anxiety Objective Last 24 Hour Vital Signs Date Time Temp Pulse Resp B/P Pulse Ox O2 Delivery O2 Flow Rate FiO2 05/11/17 20:03 98.1 74 18 118/66 95 Room Air 05/11/17 16:00 97.9 68 18 106/72 96 Room Air 05/11/17 12:00 97.6 77 18 110/65 96 Room Air 05/11/17 08:04 97.9 72 121/78 Room Air 05/11/17 04:00 98.1 59 15 116/74 98 Room Air Intake and Output 05/11/17 05/12/17 19:00 07:00 Intake Total 460 ml Balance 460 ml Intake Oral 460 ml # Voids 2 Laboratory Tests 05/11/17 06:55: White Blood Count 5.8, Red Blood Count 4.10L, Hemoglobin 14.1L, Hematocrit 41.5L , Mean Corpuscular Volume 101H, Mean Corpuscular Hemoglobin 34.4H, Mean Corpuscular Hemoglobin Concent 34.0, Red Cell Distribution Width 11.2L, Platelet Count 177, Mean Platelet Volume 6.8, Neutrophils (%) (Auto) 65.3, Lymphocytes (%) (Auto) 24.2, Monocytes (%) (Auto) 8.5, Eosinophils (%) (Auto) 1.3, Basophils (%) (Auto) 0.7, Sodium Level 138, Potassium Level 3.7, Chloride Level 102, Carbon Dioxide Level 25, Anion Gap 11, Blood Urea Nitrogen 12, Creatinine 0.8, Estimat Glomerular Filtration Rate > 60, Glucose Level 89, Calcium Level 8.8 Height (Feet): 5 Height (Inches): 9.00 Weight (Pounds): 145 General Appearance: alert, thin Neurologic: alert, oriented x 3, responsive Brian Cam M.D. May 12, 2017 00:05
[2017-05-12 04:22] VITALS: BP 120/70
[2017-05-12 08:42] VITALS: BP 132/74
--- NOTE | 2017-05-12 08:56 | General Progress Note ---
Assessment/Plan Problem List: (1) Leukocytosis ICD Codes: D72.829 - Elevated white blood cell count, unspecified SNOMED: 659431103, 193000013 (2) Abdominal pain ICD Codes: R10.9 - Unspecified abdominal pain SNOMED: 45838394 (3) Pancreatitis, alcoholic, acute ICD Codes: K85.20 - Alcohol induced acute pancreatitis without necrosis or infection SNOMED: 978712711 (4) Ileus ICD Codes: K56.7 - Ileus, unspecified SNOMED: 805618957 (5) S/P partial gastrectomy ICD Codes: Z90.3 - Acquired absence of stomach [part of] SNOMED: 345951281, 47794937 Assessment/Plan neg SBFT advance diet dc planning per primary team Subjective ROS Limited/Unobtainable: Yes Allergies: Coded Allergies: No Known Allergies (Unverified , 05/07/17) Subjective no event Objective Last 24 Hour Vital Signs Date Time Temp Pulse Resp B/P Pulse Ox O2 Delivery O2 Flow Rate FiO2 05/12/17 08:42 97.9 89 20 132/74 100 Room Air 05/12/17 04:22 98.1 75 18 120/70 95 Room Air 05/12/17 00:04 97.9 70 19 119/69 94 Room Air 05/11/17 20:03 98.1 74 18 118/66 95 Room Air 05/11/17 16:00 97.9 68 18 106/72 96 Room Air 05/11/17 12:00 97.6 77 18 110/65 96 Room Air Intake and Output 05/11/17 05/12/17 19:00 07:00 Intake Total 460 ml 240 ml Balance 460 ml 240 ml Intake Oral 460 ml 240 ml # Voids 2 3 Height (Feet): 5 Height (Inches): 9.00 Weight (Pounds): 145 General Appearance: no apparent distress EENT: normal ENT inspection Neck: supple Cardiovascular: normal rate Respiratory/Chest: lungs clear Abdomen: normal bowel sounds, non tender, soft Extremities: non-tender LUBA BUCK May 12, 2017 08:56
[2017-05-12] MEDS: Thiamine 100mg tab ORAL SCH (09:03)
--- NOTE | 2017-05-12 10:41 | Infectious Diseases Prog Note ---
Assessment/Plan Problems: (1) Left leg cellulitis Assessment & Plan: improved on cefazoline , blood culture is negative , off cefazoline (2) Leukocytosis Assessment & Plan: resolved, suspect due to cellulitis, no evidence of sepsis, blood culture is negative, will stop cefazoline (3) Pancreatitis, alcoholic, acute Assessment & Plan: continue hydration and pain management , further management as per GI (4) Abdominal pain Assessment & Plan: due to the above, continue pain management (5) Ileus Assessment & Plan: due to pancreatitis , improved, advance diet, continue hydration Subjective Constitutional: Reports: no symptoms HEENT: Reports: no symptoms Respiratory: Reports: no symptoms Breasts: Reports: no symptoms Cardiovascular: Reports: no symptoms Gastrointestinal/Abdominal: Reports: no symptoms Genitourinary: Reports: no symptoms Neurologic: Reports: no symptoms Psychiatric: Reports: no symptoms Skin: Reports: no symptoms Endocrine: Reports: no symptoms Hematologic: Reports: no symptoms Musculoskeletal: Reports: no symptoms Allergies: Coded Allergies: No Known Allergies (Unverified , 05/07/17) Objective Vital Signs Last 24 Hour Vital Signs Date Time Temp Pulse Resp B/P Pulse Ox O2 Delivery O2 Flow Rate FiO2 05/12/17 08:42 97.9 89 20 132/74 100 Room Air 05/12/17 04:22 98.1 75 18 120/70 95 Room Air 05/12/17 00:04 97.9 70 19 119/69 94 Room Air 05/11/17 20:03 98.1 74 18 118/66 95 Room Air 05/11/17 16:00 97.9 68 18 106/72 96 Room Air 05/11/17 12:00 97.6 77 18 110/65 96 Room Air Height (Feet): 5 Height (Inches): 9.00 Weight (Pounds): 145 General Appearance: WD/WN, no acute distress HEENT: normocephalic, atraumatic, anicteric, mucous membranes moist Respiratory/Chest: chest wall non-tender, lungs clear, normal breath sounds, no respiratory distress, no accessory muscle use Breasts: no masses Cardiovascular: normal peripheral pulses, normal rate, regular rhythm, no gallop/murmur, no JVD Abdomen: normal bowel sounds, soft, non tender, no organomegaly, non distended , no mass, no scars Extremities: no cyanosis, no clubbing Skin: no rash, no lesions, no ulcers Neurologic/Psychiatric: alert, oriented x 3, responsive Lymphatic: no neck adenopathy, no groin adenopathy Current Medications Medications (Trade) Dose Ordered Sig/Martha Route PRN Reason Start Time Stop Time Status Last Admin Dose Admin Fluoxetine HCl (PROzac) 20 mg DAILY ORAL 05/09/17 09:00 06/08/17 08:59 05/12/17 09:03 Folic Acid (Folate) 1 mg DAILY ORAL 05/09/17 09:00 06/08/17 08:59 05/12/17 09:04 Morphine Sulfate (Morphine Sulfate) 4 mg Q4H PRN IVP For Pain 05/08/17 00:30 05/15/17 00:29 Ondansetron HCl (Zofran) 4 mg Q6H PRN IVP Nausea & Vomiting 05/08/17 00:30 06/07/17 00:29 Thiamine HCl (Vitamin B1) 100 mg DAILY ORAL 05/09/17 09:00 06/08/17 08:59 05/12/17 09:03 Reid Rojas M.D. May 12, 2017 10:41
[2017-05-12 12:44] VITALS: BP 129/64
[2017-05-12 16:00] VITALS: BP 117/77
[2017-05-12 20:30] VITALS: BP 137/87
--- NOTE | 2017-05-12 21:19 | General Progress Note ---
Assessment/Plan Problem List: (1) Abdominal pain ICD Codes: R10.9 - Unspecified abdominal pain SNOMED: 76290951 (2) Pancreatitis, alcoholic, acute ICD Codes: K85.20 - Alcohol induced acute pancreatitis without necrosis or infection SNOMED: 264826277 (3) Leukocytosis ICD Codes: D72.829 - Elevated white blood cell count, unspecified SNOMED: 416894496, 925695275 Status: progressing Assessment/Plan pancreatitis resolving dc once cleared by gi and id abx per id check lipase no sbo clinically improving Subjective Gastrointestinal/Abdominal: Reports: abdominal pain Allergies: Coded Allergies: No Known Allergies (Unverified , 05/07/17) Objective Last 24 Hour Vital Signs Date Time Temp Pulse Resp B/P Pulse Ox O2 Delivery O2 Flow Rate FiO2 05/12/17 20:30 97.5 61 18 137/87 97 Room Air 05/12/17 16:00 97.7 75 18 117/77 98 Room Air 05/12/17 12:44 97.7 78 20 129/64 100 Room Air 05/12/17 08:42 97.9 89 20 132/74 100 Room Air 05/12/17 04:22 98.1 75 18 120/70 95 Room Air 05/12/17 00:04 97.9 70 19 119/69 94 Room Air Intake and Output 05/11/17 05/12/17 19:00 07:00 Intake Total 460 ml 240 ml Balance 460 ml 240 ml Intake Oral 460 ml 240 ml # Voids 2 3 Height (Feet): 5 Height (Inches): 9.00 Weight (Pounds): 145 Cardiovascular: normal rate Marie Richard MD May 12, 2017 21:19
[2017-05-13 00:23] VITALS: BP 127/77
[2017-05-13 04:10] VITALS: BP 127/78
[2017-05-13 08:00] VITALS: BP 120/74
[2017-05-13] MEDS: Thiamine 100mg tab ORAL SCH (08:20)
[2017-05-13 12:00] VITALS: BP 125/72
--- NOTE | 2017-05-13 13:04 | GI Progress Note ---
Assessment/Plan Problems: (1) Ileus ICD Codes: K56.7 - Ileus, unspecified SNOMED: 498149067 (2) Pancreatitis, alcoholic, acute ICD Codes: K85.20 - Alcohol induced acute pancreatitis without necrosis or infection SNOMED: 983330267 (3) Abdominal pain ICD Codes: R10.9 - Unspecified abdominal pain SNOMED: 79285667 (4) Leukocytosis ICD Codes: D72.829 - Elevated white blood cell count, unspecified SNOMED: 512175704, 417355003 (5) Duodenal obstruction ICD Codes: K31.5 - Obstruction of duodenum SNOMED: 67034522 (6) S/P partial gastrectomy ICD Codes: Z90.3 - Acquired absence of stomach [part of] SNOMED: 048415292, 62762815 Status: stable Status Narrative Discussed with Dr. King. Assessment/Plan neg SBFT advance diet dc planning per primary team Subjective Subjective no pain hungry feels better Objective Last 24 Hour Vital Signs Date Time Temp Pulse Resp B/P Pulse Ox O2 Delivery O2 Flow Rate FiO2 05/13/17 12:00 98.1 66 19 125/72 97 Room Air 05/13/17 08:00 98.1 63 19 120/74 95 Room Air 05/13/17 04:10 97.5 18 18 127/78 98 Room Air 05/13/17 00:23 97.9 61 18 127/77 97 Room Air 05/12/17 20:30 97.5 61 18 137/87 97 Room Air 05/12/17 16:00 97.7 75 18 117/77 98 Room Air Intake and Output 05/12/17 05/13/17 19:00 07:00 Intake Total 600 ml 300 ml Balance 600 ml 300 ml Intake Oral 600 ml 300 ml # Voids 2 1 # Bowel Movements 1 Height (Feet): 5 Height (Inches): 9.00 Weight (Pounds): 145 General Appearance: no apparent distress, alert Cardiovascular: normal rate Respiratory/Chest: normal breath sounds, no respiratory distress Abdominal Exam: non tender Extremities: normal range of motion Marta Wiley N.P. May 13, 2017 13:04
--- NOTE | 2017-05-13 15:05 | Infectious Diseases Prog Note ---
Assessment/Plan Problems: (1) Left leg cellulitis Assessment & Plan: improved on cefazoline , blood culture is negative , off cefazoline (2) Leukocytosis Assessment & Plan: resolved, suspect due to cellulitis, no evidence of sepsis, blood culture is negative, will stop cefazoline (3) Pancreatitis, alcoholic, acute Assessment & Plan: continue hydration and pain management , further management as per GI (4) Abdominal pain Assessment & Plan: due to the above, continue pain management (5) Ileus Assessment & Plan: due to pancreatitis , improved, advance diet as tolerated Subjective Constitutional: Reports: no symptoms HEENT: Reports: no symptoms Respiratory: Reports: no symptoms Breasts: Reports: no symptoms Cardiovascular: Reports: no symptoms Gastrointestinal/Abdominal: Reports: no symptoms Genitourinary: Reports: no symptoms Neurologic: Reports: no symptoms Psychiatric: Reports: no symptoms Skin: Reports: no symptoms Endocrine: Reports: no symptoms Hematologic: Reports: no symptoms Allergies: Coded Allergies: No Known Allergies (Unverified , 05/07/17) Objective Vital Signs Last 24 Hour Vital Signs Date Time Temp Pulse Resp B/P Pulse Ox O2 Delivery O2 Flow Rate FiO2 05/13/17 12:00 98.1 66 19 125/72 97 Room Air 05/13/17 08:00 98.1 63 19 120/74 95 Room Air 05/13/17 04:10 97.5 18 18 127/78 98 Room Air 05/13/17 00:23 97.9 61 18 127/77 97 Room Air 05/12/17 20:30 97.5 61 18 137/87 97 Room Air 05/12/17 16:00 97.7 75 18 117/77 98 Room Air Height (Feet): 5 Height (Inches): 9.00 Weight (Pounds): 145 General Appearance: WD/WN, no acute distress HEENT: normocephalic, atraumatic, anicteric, mucous membranes moist, pharynx normal, supple, no JVD Respiratory/Chest: chest wall non-tender, lungs clear, normal breath sounds, no respiratory distress, no accessory muscle use Cardiovascular: normal peripheral pulses, normal rate, regular rhythm, no gallop/murmur, no JVD Abdomen: normal bowel sounds, soft, non tender, no organomegaly, non distended , no mass, no scars Extremities: no cyanosis, no clubbing Skin: no rash, no lesions, no ulcers Lymphatic: no neck adenopathy, no groin adenopathy Musculoskeletal: normal muscle bulk Current Medications Medications (Trade) Dose Ordered Sig/Martha Route PRN Reason Start Time Stop Time Status Last Admin Dose Admin Fluoxetine HCl (PROzac) 20 mg DAILY ORAL 05/09/17 09:00 06/08/17 08:59 05/13/17 08:19 Folic Acid (Folate) 1 mg DAILY ORAL 05/09/17 09:00 06/08/17 08:59 05/13/17 08:20 Morphine Sulfate (Morphine Sulfate) 4 mg Q4H PRN IVP For Pain 05/08/17 00:30 05/15/17 00:29 Ondansetron HCl (Zofran) 4 mg Q6H PRN IVP Nausea & Vomiting 05/08/17 00:30 06/07/17 00:29 Thiamine HCl (Vitamin B1) 100 mg DAILY ORAL 05/09/17 09:00 06/08/17 08:59 05/13/17 08:20 Reid Rojas M.D. May 13, 2017 15:05
--- NOTE | 2017-05-13 18:24 | General Progress Note ---
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 less anxiety Objective Last 24 Hour Vital Signs Date Time Temp Pulse Resp B/P Pulse Ox O2 Delivery O2 Flow Rate FiO2 05/13/17 12:00 98.1 66 19 125/72 97 Room Air 05/13/17 08:00 98.1 63 19 120/74 95 Room Air 05/13/17 04:10 97.5 18 18 127/78 98 Room Air 05/13/17 00:23 97.9 61 18 127/77 97 Room Air 05/12/17 20:30 97.5 61 18 137/87 97 Room Air Intake and Output 05/12/17 05/13/17 19:00 07:00 Intake Total 600 ml 300 ml Balance 600 ml 300 ml Intake Oral 600 ml 300 ml # Voids 2 1 # Bowel Movements 1 Height (Feet): 5 Height (Inches): 9.00 Weight (Pounds): 145 General Appearance: alert, thin Neurologic: alert, oriented x 3, responsive, depressed affect Brian Cam M.D. May 13, 2017 18:24
[2017-05-14] MEDS ORDERED: FOLIC ACID1 MG ORAL (07:51)
[2017-05-14] MEDS ORDERED: VITAMIN B-1100 MG ORAL (07:51)
--- NOTE | 2017-05-14 07:57 | Discharge Summary ---
Discharge Summary Hospital Course Date of Admission May 07, 2017 at 21:55 Date of Discharge May 13, 2017 at 17:45 Admitting Diagnosis abdominal pain HPI Kurt Petersen is a 61 year old male who was admitted on May 07, 2017 at 21:55 for Abdominal Pain Hospital Course dc summary #[id number] Discharge Medications New Medications: Folic Acid* (Folic Acid*) 1 Mg Tablet 1 MG ORAL DAILY, #30 TAB Thiamine Hcl* (Vitamin B-1*) 100 Mg Tablet 100 MG ORAL DAILY, #30 TAB 0 Refills Discharge Condition Upon Discharge: stable Discharge Disposition Patient was discharged to Home (01) Discharge Diagnoses: Discharge Instructions Discharge Instructions Special Instructions I have been assigned to complete a D/C Summary on this account. I was not involved in the patient management Roma Dow NP ([place]) May 14, 2017 07:57
--- NOTE | 2017-05-14 15:31 | Discharge Summary 2 SIG ---
DATE OF ADMISSION: 05/07/2017 DATE OF DISCHARGE: 05/13/2017 REASON FOR ADMISSION: 61-year-old male with a history of alcohol abuse and partial gastrectomy, presented to the emergency room with a complaint of epigastric pain. The patient reported drinking alcohol the day before presentation. The patient had one episode of vomiting in the emergency room. The patient denied hematemesis, melena or bright red stool. Workup in the emergency room revealed WBC-15, potassium -3.5. Renal electrolytes stable. Glucose- 147. Hemoglobin -14.5. Lipase - 2329. CT of the abdomen and pelvis revealed acute pancreatitis and possible small bowel obstruction with duodenal obstruction. The patient is admitted for further management. ADMITTING DIAGNOSES: 1. Acute alcoholic pancreatitis. 2. Status post partial gastrectomy. 3. Duodenal obstruction. 4. Possible small bowel obstruction versus ileus. 5. Left leg cellulitis. HOSPITAL STAY: The patient was admitted. The patient was started on empiric antibiotics. ID consult requested and followed. Leukocytosis resolved. Blood culture negative. Cellulitis improved. The patient off antibiotics. Surgery consult and GI consult were requested for possible bowel obstruction. Surgeon recommended to keep the patient NPO, continue IV fluid, replace electrolytes and follow up with the KUB. KUB revealed no change compared to day before on the CT. Dilated loop of the small bowel was not seen on the x-ray because dilated bowel was fluid-filled. Subsequently, small bowel x-ray was ordered. Small bowel followthrough was negative. The patient was placed on thiamine and folic acid. The patient started slowly on diet, advance as tolerated. Antiemetic provided as needed. The patient was able to tolerate diet. Hemoglobin and hematocrit remained stable. Leukocytosis resolved. Lipase down to 43. The patient was stable for discharge. The patient was counseled on avoidance of alcohol and provided information and referral to local AA organization. . Psychiatrist seen and evaluated the patient and diagnosed the patient with alcohol dependency and cognitive impairment secondary to alcohol dependency. The patient to be continued on thiamine and folic acid. The patient was stable for discharge. DISCHARGE DIAGNOSES: 1. Acute alcoholic pancreatitis. 2. Left leg cellulitis. 3. History of partial gastrectomy. 4. Alcohol dependency. 5. 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 6. Ileus. DISCHARGE MEDICATIONS: The patient was discharged on folic acid and thiamine. DISCHARGE INSTRUCTIONS: The patient to follow up with the primary medical doctor. The patient discharged home. Marie Richard M.D. I have been assigned to dictate discharge summary on this account and I was not involved in the patient's management. Roma [place] NMyles DR: SANKET JOB#: [id number] CC: ADRIANNA
== END 2017-05-13 17:45 | disposition home or self-care (01) | DRG 439 ==
LOC: EDBD 20:28 → EMR 21:44 → 3E 21:55 → EDBEDREQ 22:09
DX: K85.20 Alcohol induced acute pancreatitis without necrosis or infection (principal); L03.116 Cellulitis of left lower limb; K31.5 Obstruction of duodenum; Z90.3 Acquired absence of stomach [part of]; K56.7 Ileus, unspecified; F10.288 Alcohol dependence with other alcohol-induced disorder; F17.200 Nicotine dependence, unspecified, uncomplicated
CPT/HCPCS: 36415; 74000; 74177; 74250; 80048; 80053; 80300; 81003; 83690; 84484; 85025; 85610; 85730; 86850; 86900; 86901; 87040; 93005; J2405